=== PATIENT | male | born 1940 | race Caucasian/White ===

== ENCOUNTER 2020-09-10 11:06 | Inpatient (IN) | payer OTHER ==
[~2020-09-10] VITALS: Ht 175.3 cm; Wt 99.8 kg
[~2020-09-10 11:06] MED LIST: ALLO100T PO; BACL10TA PO; FENO145T27 PO; GLIP10TA9 PO; NIFE90TA49 PO; SIMV-8 PO; TAMS0.4C36 PO; TEMA30CA PO; TRAM50TA2 PO
[2020-09-10] MEDS ORDERED: SODIUM CHLORIDE 0.9% 500 ML IVB ONE (11:15)
[2020-09-10] MEDS ORDERED: FUROSEMIDE 40 MG/4 ML VIAL IV ONE (12:15)
[2020-09-10 12:46] LABS: Basophils # (auto) 0.1 10 ^3/uL (0-0.2); Basophils % (auto) 0.8 % (0.0-2.0); Eosinophils # (auto) 0.5 10 ^3/uL (0-0.8); Eosinophils % (auto) 5.1 % (0.0-7.0); Hematocrit 34.4 % (41.0-53.0); Hemoglobin 11.8 g/dL (13.5-17.5); Lymphocytes # (auto) 0.9 10 ^3/uL (0.4-5.4); Mean Corpuscular Hemoglobin 32.5 pg (28.0-32.0); Mean Corpuscular Hgb Conc. 34.4 g/dL (32.0-36.0); Mean Corpuscular Volume 94.4 fL (80.0-100.0); Monocytes # (auto) 0.8 10 ^3/uL (0-1.3); Monocytes % (auto) 8.2 % (0.0-12.0); Neutrophils % (auto) 75.9 % (37.0-80.0); Platelet Count (auto) 269 10^3/uL (140-450); Red Blood Cells 3.64 10^6/uL (4.5-5.90); Red Cell Distribution Width 13.6 % (11.8-14.3); White Blood Cell 9.2 10^3/uL (4.4-10.8)
[2020-09-10 16:00] LABS: Albumin 3.1 g/dL (3.4-5.0); Blood Alcohol < 3.0 mg/dL (0-5); Blood Urea Nitrogen 54 mg/dL (7-18); Calcium 8.6 mg/dL (8.5-10.1); Carbon Dioxide 20 mmol/L (21-32); Glucose 252 mg/dL (74-106)
[2020-09-10 16:11] LABS: Alanine Aminotransferase 25 U/L (16-61); Alkaline Phosphatase 112 U/L (45-117); Anion Gap 7 (5-15); Aspartate Aminotransferase 18 U/L (15-37); Bilirubin, Total 0.2 mg/dL (0.2-1.0); Chloride 107 mmol/L (98-107); GFR African American 23 mL/min; GFR Non-African American 19 mL/min; Potassium 5.2 mmol/L (3.5-5.1); Sodium 134 mmol/L (136-145); Total Protein 7.2 g/dL (6.4-8.2)
[2020-09-10 16:43] LABS: CRP High Sensitivity 4.96 mg/dL (< 0.3)
[2020-09-10] MEDS ORDERED: NITROGLYCERIN 0.4 MG SL TAB SL PRN (18:30)
[2020-09-10] MEDS ORDERED: SODIUM ZIRCONIUM CYCL 10 GM PAK PO ONE (18:30)
[2020-09-10] MEDS ORDERED: HYDROcodone-ACET 5/325MG TAB PO PRN (18:30)
[2020-09-10] MEDS ORDERED: MORPHINE SULF INJ 2 MG/ML SYRINGE 1ML IV PRN ×2 (18:30)
[2020-09-10] MEDS ORDERED: ACETAMINOPHEN 500 MG TAB PO PRN (18:30)
[2020-09-11] MEDS: AZITHROMYCIN 500MG/ 250ML 250 ML IV SCH ×2 (01:05→11:11)
[2020-09-11] MEDS: ASCORBIC ACID 1,000 MG TAB PO SCH ×2 (01:05→11:36)
[2020-09-11] MEDS: ZINC SULFATE 220mg CAP or TAB PO SCH ×2 (01:05→11:37)
[2020-09-11] MEDS: ENOXAPARIN SOD 30 MG/0.3 ML SYRINGE SC SCH ×2 (01:05→18:00)
[2020-09-11] MEDS: cefTRIAXone 1GM/50ML D5W 50 ML IV SCH ×2 (01:05→09:23)
[2020-09-11] MEDS: CHOLECALCIFEROL (VITD3) 2,000 UNIT CAP PO SCH ×2 (01:05→11:11)
[2020-09-11] MEDS ORDERED: FAMOTIDINE 20 MG TAB PO SCH (10:00)
[2020-09-11 10:52] LABS: Basophils # (auto) 0.1 10 ^3/uL (0-0.2); Basophils % (auto) 0.6 % (0.0-2.0); Eosinophils # (auto) 0.4 10 ^3/uL (0-0.8); Eosinophils % (auto) 3.3 % (0.0-7.0); Hematocrit 36.7 % (41.0-53.0); Hemoglobin 12.4 g/dL (13.5-17.5); Lymphocytes # (auto) 0.7 10 ^3/uL (0.4-5.4); Lymphocytes % (auto) 6.2 % (10.0-50.0); Mean Corpuscular Hgb Conc. 33.8 g/dL (32.0-36.0); Mean Corpuscular Volume 94.7 fL (80.0-100.0); Monocytes # (auto) 0.8 10 ^3/uL (0-1.3); Monocytes % (auto) 7.5 % (0.0-12.0); Neutrophils # (auto) 9.2 10 ^3/uL (1.6-8.6); Neutrophils % (auto) 82.4 % (37.0-80.0); Nucleated Red Blood Cells % 0.3 %; Platelet Count (auto) 276 10^3/uL (140-450); Red Blood Cells 3.88 10^6/uL (4.5-5.90); Red Cell Distribution Width 13.8 % (11.8-14.3); White Blood Cell 11.2 10^3/uL (4.4-10.8)
[2020-09-11 12:05] LABS: Potassium 4.5 mmol/L (3.5-5.1)
[2020-09-11 12:32] LABS: BUN/Creatinine Ratio 16.6; Calcium 8.8 mg/dL (8.5-10.1)
[2020-09-11 16:29] VITALS: BP 151/86
== END 2020-09-11 18:00 | disposition home health service (06) | DRG 917 ==
LOC: ER 11:06 → EDBD 11:06 → OVERFLOW 18:26
PROVIDERS: ADMIT Nurse Practitioner Acute Care; ATTEND Internal Medicine Geriatric Medicine
DX: T42.8X1A Poisoning by antiparkinsonism drugs and other central muscle-tone depressants, accidental (unintentional), initial encounter (principal); G93.41 Metabolic encephalopathy; I50.21 Acute systolic (congestive) heart failure; N18.4 Chronic kidney disease, stage 4 (severe); E87.1 Hypo-osmolality and hyponatremia; I13.0 Hypertensive heart and chronic kidney disease with heart failure and stage 1 through stage 4 chronic kidney disease, or unspecified chronic kidney disease; T40.421A Poisoning by tramadol, accidental (unintentional), initial encounter; F10.10 Alcohol abuse, uncomplicated; E88.09 Other disorders of plasma-protein metabolism, not elsewhere classified; E87.5 Hyperkalemia; D63.1 Anemia in chronic kidney disease; E11.22 Type 2 diabetes mellitus with diabetic chronic kidney disease; E66.9 Obesity, unspecified; E78.5 Hyperlipidemia, unspecified; N40.0 Benign prostatic hyperplasia without lower urinary tract symptoms; Z20.822 Contact with and (suspected) exposure to COVID-19; Z79.899 Other long term (current) drug therapy; Z79.84 Long term (current) use of oral hypoglycemic drugs; Y92.89 Other specified places as the place of occurrence of the external cause
CPT/HCPCS: 36415; 70450; 71045; 76775; 80048; 80053; 80320; 82306; 82607; 82728; 83036; 83605; 83735; 84425; 84443; 84484; 85025; 86141; 87040; 87426; 93005; 93306; G0378; J0696

== ENCOUNTER 2020-10-24 17:05 | Inpatient (IN) | payer OTHER ==
[~2020-10-24] VITALS: Ht 172.7 cm; Wt 80.9 kg
[2020-10-24 18:48] LABS: Basophils # (auto) 0.1 10 ^3/uL (0-0.2); Basophils % (auto) 0.7 % (0.0-2.0); Eosinophils # (auto) 0.3 10 ^3/uL (0-0.8); Eosinophils % (auto) 2.6 % (0.0-7.0); Hemoglobin 13.6 g/dL (13.5-17.5); Lymphocytes # (auto) 1.5 10 ^3/uL (0.4-5.4); Lymphocytes % (auto) 14.7 % (10.0-50.0); Mean Corpuscular Hemoglobin 32.3 pg (28.0-32.0); Mean Corpuscular Volume 94.9 fL (80.0-100.0); Monocytes % (auto) 9.7 % (0.0-12.0); Neutrophils # (auto) 7.5 10 ^3/uL (1.6-8.6); Neutrophils % (auto) 72.3 % (37.0-80.0); Platelet Count (auto) 251 10^3/uL (140-450); Red Blood Cells 4.22 10^6/uL (4.5-5.90); Red Cell Distribution Width 13.6 % (11.8-14.3); White Blood Cell 10.4 10^3/uL (4.4-10.8)
[2020-10-24 19:06] LABS: Albumin 3.5 g/dL (3.4-5.0); Anion Gap 8 (5-15); Blood Alcohol < 3.0 mg/dL (0-5); Blood Urea Nitrogen 56 mg/dL (7-18); Carbon Dioxide 21 mmol/L (21-32); Chloride 110 mmol/L (98-107); Glucose 178 mg/dL (74-106); Magnesium 2.1 mg/dL (1.6-2.6); Potassium 4.3 mmol/L (3.5-5.1); Sodium 139 mmol/L (136-145)
[2020-10-24 19:17] LABS: Alanine Aminotransferase 50 U/L (16-61); Alkaline Phosphatase 142 U/L (45-117); Aspartate Aminotransferase 35 U/L (15-37); BUN/Creatinine Ratio 14.1; Bilirubin, Total 0.4 mg/dL (0.2-1.0); GFR African American 19 mL/min; GFR Non-African American 16 mL/min; Total Protein 7.8 g/dL (6.4-8.2)
[2020-10-24] MEDS ORDERED: LORazepam 2MG/ML-1ML VIAL IV PRN (21:30)
[2020-10-24] MEDS ORDERED: TEMAZEPAM 15 MG CAP PO PRN ×2 (21:30→22:00)
[2020-10-24] MEDS ORDERED: ONDANSETRON HCL 4 MG/2 ML VIAL IV PRN (21:30)
[2020-10-24] MEDS ORDERED: ACETAMINOPHEN 325 MG TAB PO PRN (21:30)
[2020-10-24] MEDS ORDERED: DEXTROSE (50%) 50ML SYRG IV PRN (21:30)
[2020-10-24] MEDS ORDERED: NITROGLYCERIN 0.4 MG SL TAB SL PRN (21:30)
[2020-10-24] MEDS ORDERED: MORPHINE SULF INJ 2 MG/ML SYRINGE 1ML IV PRN (21:30)
[2020-10-24] MEDS: ACCU-CHEK COMFORT CURVE STRIP VI SCH (22:12)
[2020-10-24] MEDS: ATORVASTATIN 20 MG TAB PO SCH (22:15)
[2020-10-24] MEDS: InsuLIN REG 1unit/0.01ml Soln (100units/ml) SC SCH (22:16)
[2020-10-25 04:01] LABS: Urine Amorphous Crystal FEW /hpf (None Seen); Urine Bacteria FEW /hpf (None Seen); Urine Blood Negative /uL (Negative); Urine Hyaline Cast FEW /lpf (0 - 2); Urine Mucus FEW (None Seen); Urine Specific Gravity 1.014 (1.001-1.035); Urine WBC 1 /hpf (0 - 3)
[2020-10-25 04:09] LABS: Alcohol, Urine < 3.0 mg/dL (0-10); Amphetamine Screen, Urine NEGATIVE (NEGATIVE); Barbiturate Scree,Urine NEGATIVE (NEGATIVE); Benzodiazephine Screen, Urine POSITIVE (NEGATIVE); Cannabinoid Screen, Urine NEGATIVE (NEGATIVE); Cocaine Screen, Urine NEGATIVE (NEGATIVE); Phencyclidine Screen, Urine NEGATIVE (NEGATIVE)
[2020-10-25 04:17] LABS: Opiate Scree,Urine NEGATIVE (NEGATIVE)
[2020-10-25] MEDS: ACCU-CHEK COMFORT CURVE STRIP VI SCH ×4 (06:52→21:20)
[2020-10-25] MEDS: InsuLIN REG 1unit/0.01ml Soln (100units/ml) SC SCH ×4 (06:53→21:20)
[2020-10-25 06:56] LABS: Basophils # (auto) 0 10 ^3/uL (0-0.2); Basophils % (auto) 0.4 % (0.0-2.0); Eosinophils # (auto) 0.2 10 ^3/uL (0-0.8); Hemoglobin 13.3 g/dL (13.5-17.5); Lymphocytes # (auto) 1.2 10 ^3/uL (0.4-5.4); Lymphocytes % (auto) 12.2 % (10.0-50.0); Mean Corpuscular Hemoglobin 33.1 pg (28.0-32.0); Mean Corpuscular Volume 94.6 fL (80.0-100.0); Monocytes # (auto) 0.9 10 ^3/uL (0-1.3); Monocytes % (auto) 9.4 % (0.0-12.0); Neutrophils # (auto) 7.2 10 ^3/uL (1.6-8.6); Platelet Count (auto) 216 10^3/uL (140-450); Red Blood Cells 4.01 10^6/uL (4.5-5.90); Red Cell Distribution Width 13.6 % (11.8-14.3); White Blood Cell 9.4 10^3/uL (4.4-10.8)
[2020-10-25 07:13] LABS: BUN/Creatinine Ratio 14.6; Calcium 8.7 mg/dL (8.5-10.1); Potassium 4.3 mmol/L (3.5-5.1)
[2020-10-25] MEDS ORDERED: HALOPERIDOL LACTATE 5 MG/ML INJ VIAL IM PRN (09:15)
[2020-10-25] MEDS ORDERED: LORazepam 2MG/ML-1ML VIAL IV PRN (09:15)
[2020-10-25] MEDS: PANTOPRAZOLE 40 MG TAB PO SCH (10:06)
[2020-10-25] MEDS ORDERED: BUPR200T7 PO (14:58)
[2020-10-25] MEDS ORDERED: SODI650T PO (14:58)
[2020-10-25] MEDS ORDERED: INSUINJ2 SC (14:59)
[2020-10-25] MEDS ORDERED: METO25TA5 PO (14:59)
[2020-10-25] MEDS ORDERED: cefTRIAXone 1GM/50ML D5W 50 ML IV ONE (20:15)
[2020-10-25] MEDS: cloNIDine HCL 0.1 MG TAB PO PRN (21:19)
[2020-10-25] MEDS: ATORVASTATIN 20 MG TAB PO SCH (21:19)
[2020-10-26] MEDS: cloNIDine HCL 0.1 MG TAB PO PRN ×3 (03:08→18:02)
[2020-10-26] MEDS ORDERED: hydrALAZINE HCL 20 MG/ML VL IV ONE (04:15)
[2020-10-26] MEDS: ACCU-CHEK COMFORT CURVE STRIP VI SCH ×4 (06:23→21:26)
[2020-10-26] MEDS: InsuLIN REG 1unit/0.01ml Soln (100units/ml) SC SCH ×4 (06:42→21:29)
[2020-10-26 06:55] LABS: BUN/Creatinine Ratio 15.2; Calcium 8.8 mg/dL (8.5-10.1); Magnesium 1.8 mg/dL (1.6-2.6); Potassium 4.3 mmol/L (3.5-5.1)
[2020-10-26] MEDS: PANTOPRAZOLE 40 MG TAB PO SCH (09:45)
[2020-10-26 13:00] VITALS: BP 157/76
[2020-10-26 17:00] VITALS: BP 167/82
[2020-10-26] MEDS: cefTRIAXone 1GM/50ML D5W 50 ML IV SCH (21:26)
[2020-10-26] MEDS: ATORVASTATIN 20 MG TAB PO SCH (21:26)
[2020-10-26 22:00] VITALS: BP 157/82
[2020-10-27] VITALS (7 sets, daily range): BP systolic 152–212; BP diastolic 70–95
[2020-10-27] MEDS: ACCU-CHEK COMFORT CURVE STRIP VI SCH ×4 (06:19→21:43)
[2020-10-27] MEDS: InsuLIN REG 1unit/0.01ml Soln (100units/ml) SC SCH ×4 (06:29→21:44)
[2020-10-27] MEDS: PANTOPRAZOLE 40 MG TAB PO SCH (09:53)
[2020-10-27] MEDS: cloNIDine HCL 0.1 MG TAB PO PRN ×2 (13:51→20:25)
[2020-10-27] MEDS: cefTRIAXone 1GM/50ML D5W 50 ML IV SCH (21:00)
[2020-10-27] MEDS: DONEPEZIL HYDROCHLORIDE 5 MG TAB PO SCH (21:42)
[2020-10-27] MEDS: ATORVASTATIN 20 MG TAB PO SCH (21:43)
[2020-10-28 00:35] VITALS: BP 178/81
[2020-10-28 02:20] VITALS: BP 164/80
[2020-10-28] MEDS: cloNIDine HCL 0.1 MG TAB PO PRN ×2 (02:29→09:24)
[2020-10-28 05:00] VITALS: BP 168/80
[2020-10-28] MEDS: ACCU-CHEK COMFORT CURVE STRIP VI SCH ×4 (06:01→21:43)
[2020-10-28] MEDS: InsuLIN REG 1unit/0.01ml Soln (100units/ml) SC SCH ×4 (06:02→21:46)
[2020-10-28] MEDS: PANTOPRAZOLE 40 MG TAB PO SCH (09:20)
[2020-10-28] MEDS: NIFEdipine ER 30 MG TAB PO SCH (12:22)
[2020-10-28 21:00] VITALS: BP 134/85
[2020-10-28] MEDS: cefTRIAXone 1GM/50ML D5W 50 ML IV SCH (21:42)
[2020-10-28] MEDS: ATORVASTATIN 20 MG TAB PO SCH (21:43)
[2020-10-28] MEDS: DONEPEZIL HYDROCHLORIDE 5 MG TAB PO SCH (21:43)
[2020-10-28] MEDS: QUEtiapine FUMARATE 25 MG TAB PO SCH (21:43)
[2020-10-29 05:00] VITALS: BP_SYST 0; BP_SYST 115; BP_DIAS 70
[2020-10-29] MEDS: ACCU-CHEK COMFORT CURVE STRIP VI SCH ×4 (06:06→21:21)
[2020-10-29] MEDS: InsuLIN REG 1unit/0.01ml Soln (100units/ml) SC SCH ×4 (06:08→21:16)
[2020-10-29 09:00] VITALS: BP 143/71
[2020-10-29] MEDS: NIFEdipine ER 30 MG TAB PO SCH (09:45)
[2020-10-29] MEDS: PANTOPRAZOLE 40 MG TAB PO SCH (09:45)
[2020-10-29 13:00] VITALS: BP_SYST 123; BP_SYST 136; BP_DIAS 63; BP_DIAS 71
[2020-10-29 17:00] VITALS: BP 123/63
[2020-10-29 21:00] VITALS: BP_SYST 0; BP_SYST 124; BP_DIAS 58
[2020-10-29] MEDS: cefTRIAXone 1GM/50ML D5W 50 ML IV SCH (21:13)
[2020-10-29] MEDS: DONEPEZIL HYDROCHLORIDE 5 MG TAB PO SCH (21:13)
[2020-10-29] MEDS: QUEtiapine FUMARATE 25 MG TAB PO SCH (21:14)
[2020-10-29] MEDS: ATORVASTATIN 20 MG TAB PO SCH (21:14)
[2020-10-30 05:00] VITALS: BP_SYST 133; BP_SYST 5; BP_DIAS 67
[2020-10-30] MEDS: ACCU-CHEK COMFORT CURVE STRIP VI SCH ×2 (06:29→11:45)
[2020-10-30] MEDS: InsuLIN REG 1unit/0.01ml Soln (100units/ml) SC SCH ×2 (06:29→11:45)
[2020-10-30 06:37] LABS: Basophils # (auto) 0.1 10 ^3/uL (0-0.2); Basophils % (auto) 0.8 % (0.0-2.0); Eosinophils # (auto) 0.3 10 ^3/uL (0-0.8); Eosinophils % (auto) 3.7 % (0.0-7.0); Hematocrit 37.6 % (41.0-53.0); Hemoglobin 12.8 g/dL (13.5-17.5); Lymphocytes # (auto) 1.6 10 ^3/uL (0.4-5.4); Lymphocytes % (auto) 19.2 % (10.0-50.0); Mean Corpuscular Hemoglobin 32.6 pg (28.0-32.0); Mean Corpuscular Volume 95.8 fL (80.0-100.0); Monocytes # (auto) 0.8 10 ^3/uL (0-1.3); Monocytes % (auto) 9.4 % (0.0-12.0); Neutrophils # (auto) 5.4 10 ^3/uL (1.6-8.6); Neutrophils % (auto) 66.9 % (37.0-80.0); Nucleated Red Blood Cells % 0.1 %; Platelet Count (auto) 202 10^3/uL (140-450); Red Blood Cells 3.93 10^6/uL (4.5-5.90); Red Cell Distribution Width 13.4 % (11.8-14.3); White Blood Cell 8.1 10^3/uL (4.4-10.8)
[2020-10-30 07:00] LABS: BUN/Creatinine Ratio 13.5; Calcium 8.6 mg/dL (8.5-10.1); Potassium 4.2 mmol/L (3.5-5.1)
[2020-10-30 09:00] VITALS: BP 129/66
[2020-10-30] MEDS: NIFEdipine ER 30 MG TAB PO SCH (10:11)
[2020-10-30] MEDS: PANTOPRAZOLE 40 MG TAB PO SCH (10:11)
[2020-10-30 13:40] VITALS: BP 140/62
[2020-10-30 15:11] VITALS: BP 129/66
== END 2020-10-30 16:45 | DRG 71 ==
LOC: EDUNIT# 17:05 → ER 17:05 → EDBD 17:05 → TELE 17:06 → TELE-CENTR 10-26 10:35
PROVIDERS: ADMIT Nurse Practitioner; ATTEND Internal Medicine Geriatric Medicine
DX: G93.41 Metabolic encephalopathy (principal); N39.0 Urinary tract infection, site not specified; F23 Brief psychotic disorder; N17.9 Acute kidney failure, unspecified; N18.4 Chronic kidney disease, stage 4 (severe); R62.7 Adult failure to thrive; E86.0 Dehydration; E78.5 Hyperlipidemia, unspecified; N40.0 Benign prostatic hyperplasia without lower urinary tract symptoms; Z20.822 Contact with and (suspected) exposure to COVID-19; E11.22 Type 2 diabetes mellitus with diabetic chronic kidney disease; F02.80 Dementia in other diseases classified elsewhere, unspecified severity, without behavioral disturbance, psychotic disturbance, mood disturbance, and anxiety; F17.200 Nicotine dependence, unspecified, uncomplicated; G30.9 Alzheimer's disease, unspecified; I12.9 Hypertensive chronic kidney disease with stage 1 through stage 4 chronic kidney disease, or unspecified chronic kidney disease; Z79.899 Other long term (current) drug therapy; Z82.49 Family history of ischemic heart disease and other diseases of the circulatory system; Z83.3 Family history of diabetes mellitus
CPT/HCPCS: 36415; 70450; 70551; 71045; 80048; 80053; 80307; 80320; 81001; 82962; 83605; 83735; 83880; 84484; 85025; 87040; 87086; 87426; 93005; 96365; 96372; 96375; 97163; G0378; J0696; J1815

== ENCOUNTER 2022-12-02 08:11 | Inpatient (IN) | payer OTHER ==
[~2022-12-02] VITALS: Ht 172.7 cm; Wt 81.0 kg
[~2022-12-02 08:11] MED LIST changes: -ALLO100T PO; -BACL10TA PO; +BUPR200T7 PO; -FENO145T27 PO; -GLIP10TA9 PO; +INSUINJ2 SC; +METO25TA5 PO; +SODI650T PO; -TRAM50TA2 PO
[2022-12-02 08:14] VITALS: BP 187/99
[2022-12-02] MEDS ORDERED: FUROSEMIDE 40 MG/4 ML VIAL IV ONE ×2 (08:30→14:15)
[2022-12-02 08:55] LABS: Basophils # (auto) 0.1 10 ^3/uL (0-0.2); Basophils % (auto) 0.7 % (0.0-2.0); Eosinophils # (auto) 0.2 10 ^3/uL (0-0.8); Eosinophils % (auto) 1.2 % (0.0-7.0); Hematocrit 34.2 % (41.0-53.0); Hemoglobin 11.6 g/dL (13.5-17.5); Lymphocytes # (auto) 0.5 10 ^3/uL (0.4-5.4); Lymphocytes % (auto) 3.3 % (10.0-50.0); Mean Corpuscular Hgb Conc. 33.9 g/dL (32.0-36.0); Mean Corpuscular Volume 100.3 fL (80.0-100.0); Monocytes % (auto) 7.3 % (0.0-12.0); Neutrophils # (auto) 12.1 10 ^3/uL (1.6-8.6); Neutrophils % (auto) 87.5 % (37.0-80.0); Nucleated Red Blood Cells % 0.1 %; Red Blood Cells 3.41 10^6/uL (4.5-5.90); Red Cell Distribution Width 13.4 % (11.8-14.3); White Blood Cell 13.8 10^3/uL (4.4-10.8)
[2022-12-02 09:27] LABS: Albumin 3.1 g/dL (3.4-5.0); Calcium 8.3 mg/dL (8.5-10.1); Potassium 5.1 mmol/L (3.5-5.1)
[2022-12-02 09:30] LABS: BUN/Creatinine Ratio 9.2 (10.0-20.0); Bilirubin, Total 0.3 mg/dL (0.2-1.0); Total Protein 6.7 g/dL (6.4-8.2)
[2022-12-02] MEDS ORDERED: hydrALAZINE HCL 20 MG/ML VL IV PRN (09:45)
[2022-12-02 10:56] VITALS: BP 165/80
[2022-12-02 11:58] LABS: Cholesterol 194 mg/dL (< 200)
[2022-12-02 12:01] LABS: HDL Cholesterol 47 mg/dL (40-59); LDL Cholesterol 121 mg/dL (< 100); Triglycerides 186 mg/dL (< 150)
[2022-12-02 12:09] LABS: Urine Bacteria NONE SEEN /hpf (None Seen); Urine Blood 1+ /uL (Negative); Urine Specific Gravity 1.011 (1.001-1.035); Urine WBC <1 /hpf (0 - 3)
[2022-12-02] MEDS ORDERED: MORPHINE SULFATE INJ 2 MG/ml SYRG IV PRN (12:45)
[2022-12-02] MEDS ORDERED: NITROGLYCERIN 0.4 MG SL TAB SL PRN ×2 (12:45→17:45)
[2022-12-02] MEDS ORDERED: cefTRIAXone 1GM/50ML D5W 50 ML IV ONE (13:00)
[2022-12-02] MEDS ORDERED: AZITHROMYCIN 500MG/ 250ML 250 ML IV ONE (13:00)
[2022-12-02] MEDS ORDERED: SODIUM CHLORIDE 0.9% 1,000 ML IV ONE (13:00)
[2022-12-02] MEDS ORDERED: DEXTROSE (50%) 50ML SYRG IV PRN (13:00)
[2022-12-02] MEDS ORDERED: PANTOPRAZOLE 40 MG/10 ML VIAL INJ IV ONE (13:15)
[2022-12-02] MEDS ORDERED: IPRATROPIUM BROM 0.5 MG/2.5ML INH SOL NEB PRN (13:15)
[2022-12-02] MEDS ORDERED: ALBUTEROL SULF 2.5 MG/0.5ML(0.5%) NEB SOLN NEB PRN (13:15)
[2022-12-02 13:43] LABS: Alcohol, Urine < 3.0 mg/dL (0-10); Amphetamine Screen, Urine NEGATIVE (NEGATIVE); Barbiturate Scree,Urine NEGATIVE (NEGATIVE); Benzodiazephine Screen, Urine NEGATIVE (NEGATIVE); Cannabinoid Screen, Urine NEGATIVE (NEGATIVE); Cocaine Screen, Urine NEGATIVE (NEGATIVE); Opiate Scree,Urine NEGATIVE (NEGATIVE); Phencyclidine Screen, Urine NEGATIVE (NEGATIVE)
[2022-12-02] MEDS ORDERED: HEPARIN SODIUM (PORCINE) 5000 UNITS/ML 1ML VIAL SC SCH (14:00)
[2022-12-02 14:06] VITALS: BP 179/88
[2022-12-02] MEDS: InsuLIN REG 1unit/0.01ml Soln (100units/ml) SC SCH ×2 (15:56→23:26)
[2022-12-02] MEDS: ACCU-CHEK COMFORT CURVE STRIP VI SCH ×2 (15:57→22:19)
[2022-12-02 16:00] VITALS: BP 169/78
[2022-12-02] MEDS: TAMSULOSIN HYDROCHLORIDE 0.4 MG CAP PO SCH (16:03)
[2022-12-02 16:31] LABS: INR 1.03 (0.9-1.15); Partial Thromboplastin Time 27.6 sec (24.6-33.4)
[2022-12-02] MEDS ORDERED: SODIUM CHL 0.9% 1000 ML BAG XX ONE (17:15)
[2022-12-02 17:20] LABS: Basophils # (auto) 0.1 10 ^3/uL (0-0.2); Basophils % (auto) 0.4 % (0.0-2.0); Eosinophils # (auto) 0 10 ^3/uL (0-0.8); Lymphocytes # (auto) 0.8 10 ^3/uL (0.4-5.4); Lymphocytes % (auto) 4.9 % (10.0-50.0); Neutrophils # (auto) 12.4 10 ^3/uL (1.6-8.6); White Blood Cell 15.3 10^3/uL (4.4-10.8)
[2022-12-02 17:21] LABS: Hematocrit 38.5 % (41.0-53.0); Hemoglobin 12.1 g/dL (13.5-17.5); Mean Corpuscular Hemoglobin 33.3 pg (28.0-32.0); Mean Corpuscular Hgb Conc. 31.5 g/dL (32.0-36.0); Mean Corpuscular Volume 105.9 fL (80.0-100.0); Monocytes # (auto) 2.1 10 ^3/uL (0-1.3); Monocytes % (auto) 13.7 % (0.0-12.0); Nucleated Red Blood Cells % 0.2 %; Red Blood Cells 3.64 10^6/uL (4.5-5.90); Red Cell Distribution Width 14.4 % (11.8-14.3)
[2022-12-02] MEDS ORDERED: TICAGRELOR 90 MG TAB PO ONE (17:30)
[2022-12-02] MEDS ORDERED: ASPirin 81 mg TAB PO ONE (17:30)
[2022-12-02] MEDS ORDERED: HEPARIN DRIP/D5W 100UNITS/ML 250 ML IV SCH (17:30)
[2022-12-02] MEDS: FUROSEMIDE 100 MG/10ML VIAL IV SCH ×2 (17:32→23:17)
[2022-12-02] MEDS ORDERED: MORPHINE SULFATE 4 MG/ML SYR/VIAL IV PRN (17:45)
[2022-12-02 19:15] LABS: % Iron Saturation 10.2 % (20-55)
[2022-12-02] MEDS: ALBUTEROL SULF 2.5 MG/0.5ML(0.5%) NEB SOLN NEB SCH (19:20)
[2022-12-02] MEDS: IPRATROPIUM BROM 0.5 MG/2.5ML INH SOL NEB PRN ×2 (19:20→22:50)
[2022-12-02 20:20] VITALS: BP 159/90
[2022-12-02] MEDS: ROCURONIUM 10MG/ML 10ML VIAL IV ONE ×2 (20:42→21:42)
[2022-12-02] MEDS: ETOMIDATE (2MG/ML) 20ML VIAL IV ONE ×2 (20:42→21:42)
[2022-12-02] MEDS: PROPOFOL 100 ML IV SCH ×2 (20:45→21:45)
[2022-12-02] MEDS ORDERED: LORazepam 2MG/ML-1ML VIAL IV ONE (21:15)
[2022-12-02] MEDS ORDERED: ROCURONIUM 10MG/ML 10ML VIAL IV ONE (21:39)
[2022-12-02] MEDS ORDERED: PROPOFOL 100 ML IV ONE (21:39)
[2022-12-02] MEDS ORDERED: ETOMIDATE (2MG/ML) 20ML VIAL IV ONE (21:39)
[2022-12-02 21:40] VITALS: BP 174/94
[2022-12-02] MEDS: TEMAZEPAM 15 MG CAP PO SCH (22:00)
[2022-12-02] MEDS ORDERED: NIFEdipine ER 30 MG TAB PO SCH (22:00)
[2022-12-02] MEDS: SODIUM BICARBONATE 650 MG TAB PO SCH (22:00)
[2022-12-02] MEDS: ATORVASTATIN 20 MG TAB PO SCH (22:00)
[2022-12-02] MEDS ORDERED: METOPROLOL TARTRATE 25 MG TAB PO SCH (22:00)
[2022-12-02] MEDS ORDERED: MIDAZOLAM HCL 5 MG/ML-1ML VIAL IV ONE (22:45)
[2022-12-03] VITALS (12 sets, daily range): BP systolic 94–142; BP diastolic 45–71
[2022-12-03] MEDS: ALBUTEROL SULF 2.5 MG/0.5ML(0.5%) NEB SOLN NEB SCH ×4 (00:02→18:23)
[2022-12-03] MEDS: IPRATROPIUM BROM 0.5 MG/2.5ML INH SOL NEB PRN (00:02)
[2022-12-03] MEDS ORDERED: SODIUM BICARBONATE 8.4 % INJ 50ML VIAL IV ONE (00:15)
[2022-12-03 00:24] LABS: INR 1.09 (0.9-1.15); Partial Thromboplastin Time 43.2 sec (24.6-33.4)
[2022-12-03] MEDS: fentaNYL Drip 2500mCg/250mlNS 250 ML IV SCH (01:15)
[2022-12-03] MEDS: SODIUM BICARBONATE 650 MG TAB PO SCH ×3 (06:00→22:00)
[2022-12-03] MEDS: ACCU-CHEK COMFORT CURVE STRIP VI SCH ×4 (06:30→22:05)
[2022-12-03 06:33] LABS: Eosinophils # (auto) 0 10 ^3/uL (0-0.8); Lymphocytes # (auto) 0.7 10 ^3/uL (0.4-5.4); Lymphocytes % (auto) 5.9 % (10.0-50.0); Mean Corpuscular Hgb Conc. 33.4 g/dL (32.0-36.0); Monocytes # (auto) 1.4 10 ^3/uL (0-1.3); Monocytes % (auto) 11.4 % (0.0-12.0)
[2022-12-03 06:37] LABS: Basophils # (auto) 0 10 ^3/uL (0-0.2); Basophils % (auto) 0.3 % (0.0-2.0); Hematocrit 31.8 % (41.0-53.0); Hemoglobin 10.6 g/dL (13.5-17.5); Mean Corpuscular Volume 101.7 fL (80.0-100.0); Neutrophils # (auto) 9.8 10 ^3/uL (1.6-8.6); Neutrophils % (auto) 82.4 % (37.0-80.0); Nucleated Red Blood Cells % 0.1 %; Red Blood Cells 3.12 10^6/uL (4.5-5.90); Red Cell Distribution Width 13.6 % (11.8-14.3); White Blood Cell 11.9 10^3/uL (4.4-10.8)
[2022-12-03] MEDS: FUROSEMIDE 100 MG/10ML VIAL IV SCH (06:51)
[2022-12-03] MEDS: InsuLIN REG 1unit/0.01ml Soln (100units/ml) SC SCH ×4 (06:51→22:36)
[2022-12-03 08:36] LABS: BUN/Creatinine Ratio 8.8 (10.0-20.0)
[2022-12-03 08:37] LABS: Albumin 2.4 g/dL (3.4-5.0); Bilirubin, Total 0.3 mg/dL (0.2-1.0); Calcium 8.1 mg/dL (8.5-10.1); Total Protein 6.2 g/dL (6.4-8.2)
[2022-12-03 08:39] LABS: Potassium 5.9 mmol/L (3.5-5.1)
[2022-12-03 08:42] LABS: INR 1.16 (0.9-1.15)
[2022-12-03 08:45] LABS: Partial Thromboplastin Time 107.1 sec (24.6-33.4)
[2022-12-03] MEDS ORDERED: FUROSEMIDE 100 MG/10ML VIAL IV ONE ×2 (09:15→18:00)
[2022-12-03] MEDS: cefTRIAXone 1GM/50ML D5W 50 ML IV SCH (09:15)
[2022-12-03] MEDS: ACETAMINOPHEN 650 MG RECT SUPP PR PRN (09:17)
[2022-12-03] MEDS ORDERED: FUROSEMIDE INJECTION 100 MG in SODIUM CHL 0.9% 100 ML IV SCH (09:45)
[2022-12-03] MEDS ORDERED: HEPARIN DRIP/D5W 100UNITS/ML 250 ML IV SCH ×2 (09:45→17:30)
[2022-12-03] MEDS ORDERED: FUROSEMIDE 20 MG/2 ML VIAL IV SCH (10:00)
[2022-12-03] MEDS: ASPirin 81 mg TAB PO SCH (10:00)
[2022-12-03] MEDS: PANTOPRAZOLE 40 MG/10 ML VIAL INJ IV SCH (10:31)
[2022-12-03] MEDS: AZITHROMYCIN 500MG/ 250ML 250 ML IV SCH (10:31)
[2022-12-03 10:34] LABS: Lactic Acid w/Reflex 2.8 mmol/L (0.4-2.0)
[2022-12-03] MEDS ORDERED: DOBUTamine 1000MCG/ML 250 ML IV SCH (12:00)
[2022-12-03] MEDS: NOREPINEPHRINE 8 MG/250ML KIT 250 ML IV SCH (14:25)
[2022-12-03] MEDS ORDERED: AMIODARONE 450mg/250ml AE 250 ML IV SCH (14:30)
[2022-12-03] MEDS ORDERED: AMIODARONE HCL 150 MG in D5W 5% 100 ML IV ONE ×2 (14:30→16:00)
[2022-12-03] MEDS ORDERED: EPINEPHrine HCL 1 MG/10 ML SYRG ONE (16:45)
[2022-12-03] MEDS ORDERED: ATROPINE SULFATE 0.4 MG/1 ML VIAL ONE (16:51)
[2022-12-03] MEDS ORDERED: ATROPINE SULFATE 1 MG/1 ML VIAL ONE (16:52)
[2022-12-03 16:54] LABS: INR 1.14 (0.9-1.15)
[2022-12-03 17:04] LABS: Partial Thromboplastin Time 75.9 sec (24.6-33.4)
[2022-12-03] MEDS: MIDAZOLAM DRIP 50 mg/50mL 50 ML IV SCH ×2 (17:30→19:45)
[2022-12-03] MEDS: TAMSULOSIN HYDROCHLORIDE 0.4 MG CAP PO SCH (18:00)
[2022-12-03] MEDS ORDERED: FUROSEMIDE INJECTION 0 ML ONE (18:08)
[2022-12-03] MEDS ORDERED: SODIUM CHL 0.9% IV ONE ×4 (18:15)
[2022-12-03] MEDS ORDERED: FUROSEMIDE IV ONE ×4 (18:15)
[2022-12-03] MEDS: FUROSEMIDE INJECTION 100 MG in SODIUM CHL 0.9% 100 ML IV SCH (20:14)
[2022-12-03] MEDS: AMIODARONE 450mg/250ml AE 250 ML IV SCH (20:31)
[2022-12-03] MEDS: PROPOFOL 100 ML IV SCH (21:45)
[2022-12-03] MEDS: TEMAZEPAM 15 MG CAP PO SCH (22:00)
[2022-12-03] MEDS: ATORVASTATIN 20 MG TAB PO SCH (22:00)
[2022-12-04] VITALS (59 sets, daily range): BP systolic 92–141; BP diastolic 39–62
[2022-12-04] MEDS: ALBUTEROL SULF 2.5 MG/0.5ML(0.5%) NEB SOLN NEB SCH ×4 (00:08→18:17)
[2022-12-04] MEDS: NOREPINEPHRINE 8 MG/250ML KIT 250 ML IV SCH ×3 (00:45→01:12)
[2022-12-04 01:27] LABS: INR 1.18 (0.9-1.15); Partial Thromboplastin Time 54.2 sec (24.6-33.4)
[2022-12-04] MEDS ORDERED: FUROSEMIDE INJECTION 10 ML ONE (03:02)
[2022-12-04] MEDS: MIDAZOLAM DRIP 50 mg/50mL 50 ML IV SCH ×5 (03:23→23:00)
[2022-12-04] MEDS: FUROSEMIDE INJECTION 100 MG in SODIUM CHL 0.9% 100 ML IV SCH ×4 (03:55→14:22)
[2022-12-04] MEDS: fentaNYL Drip 2500mCg/250mlNS 250 ML IV SCH ×2 (04:49→23:30)
[2022-12-04] MEDS: SODIUM BICARBONATE 650 MG TAB PO SCH ×3 (06:00→22:04)
[2022-12-04 06:34] LABS: INR 1.17 (0.9-1.15); Partial Thromboplastin Time 56.4 sec (24.6-33.4)
[2022-12-04] MEDS: ACCU-CHEK COMFORT CURVE STRIP VI SCH ×4 (07:00→22:00)
[2022-12-04] MEDS ORDERED: SODIUM CHL 0.9% 1000 ML BAG XX ONE (07:00)
[2022-12-04] MEDS: InsuLIN REG 1unit/0.01ml Soln (100units/ml) SC SCH ×4 (07:00→22:37)
[2022-12-04 09:47] LABS: Basophils # (auto) 0.1 10 ^3/uL (0-0.2); Eosinophils # (auto) 0 10 ^3/uL (0-0.8); Lymphocytes # (auto) 0.5 10 ^3/uL (0.4-5.4); Monocytes # (auto) 0.2 10 ^3/uL (0-1.3); Nucleated Red Blood Cells % 0.2 %
[2022-12-04 09:48] LABS: Basophils % (auto) 0.9 % (0.0-2.0); Eosinophils % (auto) 0.4 % (0.0-7.0); Hematocrit 23.9 % (41.0-53.0); Hemoglobin 8.3 g/dL (13.5-17.5); Lymphocytes % (auto) 6.7 % (10.0-50.0); Mean Corpuscular Hgb Conc. 34.6 g/dL (32.0-36.0); Mean Corpuscular Volume 101.1 fL (80.0-100.0); Monocytes % (auto) 3.4 % (0.0-12.0); Neutrophils # (auto) 6.3 10 ^3/uL (1.6-8.6); Neutrophils % (auto) 88.6 % (37.0-80.0); Red Blood Cells 2.36 10^6/uL (4.5-5.90); Red Cell Distribution Width 13.5 % (11.8-14.3); White Blood Cell 7.1 10^3/uL (4.4-10.8)
[2022-12-04] MEDS: ASPirin 81 mg TAB PO SCH (10:00)
[2022-12-04 10:08] LABS: Calcium 7.6 mg/dL (8.5-10.1); Potassium 4.4 mmol/L (3.5-5.1)
[2022-12-04 11:11] LABS: Albumin 1.9 g/dL (3.4-5.0); BUN/Creatinine Ratio 7.7 (10.0-20.0); Bilirubin, Total 0.4 mg/dL (0.2-1.0); Total Protein 5.3 g/dL (6.4-8.2)
[2022-12-04] MEDS: PANTOPRAZOLE 40 MG/10 ML VIAL INJ IV SCH (11:24)
[2022-12-04] MEDS: cefTRIAXone 1GM/50ML D5W 50 ML IV SCH (11:25)
[2022-12-04] MEDS: DexAMETHasone SOD PHOS 10MG/1ML VIAL INJ IV SCH (11:25)
[2022-12-04] MEDS: AZITHROMYCIN 500MG/ 250ML 250 ML IV SCH (11:25)
[2022-12-04] MEDS: AMIODARONE 450mg/250ml AE 250 ML IV SCH ×2 (11:42→23:00)
[2022-12-04] MEDS: IPRATROPIUM BROM 0.5 MG/2.5ML INH SOL NEB PRN (12:17)
[2022-12-04 12:46] LABS: INR 1.19 (0.9-1.15); Partial Thromboplastin Time 44.9 sec (24.6-33.4)
[2022-12-04] MEDS ORDERED: HEPARIN DRIP/D5W 100UNITS/ML 250 ML IV SCH (13:00)
[2022-12-04] MEDS ORDERED: ANGIOMAX 250 MG VIAL IV ONE (15:10)
[2022-12-04] MEDS ORDERED: SODIUM CHL 0.9% 0 ML ONE (15:10)
[2022-12-04] MEDS ORDERED: IODIXANOL 320MG/ML 100ML BTL IV ONE ×2 (15:12→16:16)
[2022-12-04] MEDS ORDERED: LIDOCAINE 2%HCL (LOCAL ANESTH.) INJ 20ML MDV ONE (15:12)
[2022-12-04 15:57] LABS: Lactic Acid w/Reflex 6.5 mmol/L (0.4-2.0)
[2022-12-04] MEDS ORDERED: MORPHINE SULFATE INJ 2 MG/ml SYRG IV PRN (16:00)
[2022-12-04] MEDS ORDERED: ceFAZolin 1GM/50ML 50 ML IV ONE (16:52)
[2022-12-04] MEDS: TAMSULOSIN HYDROCHLORIDE 0.4 MG CAP PO SCH (18:00)
[2022-12-04] MEDS ORDERED: metOLazone 5 MG TAB PO ONE ×2 (19:15→22:15)
[2022-12-04 21:46] LABS: INR 1.25 (0.9-1.15); Partial Thromboplastin Time 38.4 sec (24.6-33.4)
[2022-12-04] MEDS: BUMETANIDE 2.5mg/10ml (0.25 mg/ml) INJ IV SCH (22:00)
[2022-12-04] MEDS: TEMAZEPAM 15 MG CAP PO SCH (22:00)
[2022-12-04] MEDS: ATORVASTATIN 20 MG TAB PO SCH (22:05)
[2022-12-05] VITALS (111 sets, daily range): BP systolic 87–180; BP diastolic 34–71
[2022-12-05] MEDS ORDERED: ALBUMIN 25% 100 ML IV PRN (05:00)
[2022-12-05] MEDS ORDERED: BUMETANIDE 1mg/4ml VIAL (0.25mg/ml) ONE (05:24)
[2022-12-05] MEDS: SODIUM BICARBONATE 650 MG TAB PO SCH ×3 (06:00→21:13)
[2022-12-05] MEDS: BUMETANIDE 2.5mg/10ml (0.25 mg/ml) INJ IV SCH ×2 (06:05→17:24)
[2022-12-05] MEDS: ACCU-CHEK COMFORT CURVE STRIP VI SCH ×4 (06:06→21:13)
[2022-12-05] MEDS: InsuLIN REG 1unit/0.01ml Soln (100units/ml) SC SCH ×4 (06:06→21:52)
[2022-12-05] MEDS: ALBUTEROL SULF 2.5 MG/0.5ML(0.5%) NEB SOLN NEB SCH ×4 (06:20→18:46)
[2022-12-05 06:23] LABS: INR 1.34 (0.9-1.15)
[2022-12-05] MEDS ORDERED: MIDODRINE HCL 10 MG TAB ONE (06:44)
[2022-12-05] MEDS ORDERED: MIDODRINE HCL 10 MG TAB PO ONE (06:45)
[2022-12-05 06:54] LABS: Partial Thromboplastin Time 79.8 sec (24.6-33.4)
[2022-12-05] MEDS ORDERED: SODIUM CHL 0.9% 1000 ML BAG XX ONE (07:00)
[2022-12-05 07:09] LABS: Potassium 4.3 mmol/L (3.5-5.1)
[2022-12-05 07:10] LABS: Albumin 1.8 g/dL (3.4-5.0); BUN/Creatinine Ratio 10.7 (10.0-20.0); Bilirubin, Total 0.3 mg/dL (0.2-1.0); Calcium 7.5 mg/dL (8.5-10.1); Total Protein 4.1 g/dL (6.4-8.2)
[2022-12-05 07:32] LABS: Hematocrit 19.2 % (41.0-53.0); Mean Corpuscular Volume 100.6 fL (80.0-100.0); White Blood Cell 9.3 10^3/uL (4.4-10.8)
[2022-12-05 07:34] LABS: Mean Corpuscular Hgb Conc. 35.8 g/dL (32.0-36.0); Red Blood Cells 1.91 10^6/uL (4.5-5.90); Red Cell Distribution Width 13.3 % (11.8-14.3)
[2022-12-05 07:37] LABS: Hemoglobin 6.9 g/dL (13.5-17.5)
[2022-12-05 07:38] LABS: Basophils % (manual) 0 (0.0-2.0); Blast Cells 0; Eosinophils % (manual) 0 (0-7); Metamyelocytes % 0; Monocytes % (manual) 0 (0-12); Myelocytes % 0; Promyelocytes % 0; Reactive Lymphocytes 0
[2022-12-05] MEDS: PROPOFOL 100 ML IV SCH ×2 (09:00→20:56)
[2022-12-05 09:07] LABS: Basophils # (auto) 0 10 ^3/uL (0-0.2); Basophils % (auto) 0.4 % (0.0-2.0); Eosinophils # (auto) 0 10 ^3/uL (0-0.8); Eosinophils % (auto) 0.1 % (0.0-7.0); Hematocrit 19.8 % (41.0-53.0); Lymphocytes # (auto) 0.2 10 ^3/uL (0.4-5.4); Lymphocytes % (auto) 2.1 % (10.0-50.0); Mean Corpuscular Hemoglobin 34.1 pg (28.0-32.0); Mean Corpuscular Hgb Conc. 34.3 g/dL (32.0-36.0); Mean Corpuscular Volume 99.4 fL (80.0-100.0); Monocytes # (auto) 0.3 10 ^3/uL (0-1.3); Monocytes % (auto) 2.9 % (0.0-12.0); Neutrophils # (auto) 10.9 10 ^3/uL (1.6-8.6); Neutrophils % (auto) 94.5 % (37.0-80.0); Nucleated Red Blood Cells % 0.1 %; Red Cell Distribution Width 13.4 % (11.8-14.3); White Blood Cell 11.5 10^3/uL (4.4-10.8)
[2022-12-05 09:12] LABS: Hemoglobin 6.8 g/dL (13.5-17.5)
[2022-12-05 09:44] LABS: Band Neutrophils % (manual) 24; Lymphocytes % (manual) 1 (10.0-50.0)
[2022-12-05 09:55] LABS: Hepatitis B Surface Antibody Negative (Negative)
[2022-12-05] MEDS: METOPROLOL TARTRATE 25 MG TAB PO SCH ×2 (10:00→20:56)
[2022-12-05] MEDS: CALCITRIOL 0.25 MCG CAP PO SCH (10:00)
[2022-12-05] MEDS: PANTOPRAZOLE 40 MG/10 ML VIAL INJ IV SCH (10:23)
[2022-12-05] MEDS: cefTRIAXone 1GM/50ML D5W 50 ML IV SCH (10:23)
[2022-12-05] MEDS: AZITHROMYCIN 500MG/ 250ML 250 ML IV SCH (10:23)
[2022-12-05] MEDS: ASPirin 81 mg TAB PO SCH (10:24)
[2022-12-05] MEDS: DexAMETHasone SOD PHOS 10MG/1ML VIAL INJ IV SCH (10:24)
[2022-12-05] MEDS ORDERED: AMIODARONE HCL 200 MG TAB PO ONE (10:45)
[2022-12-05] MEDS: IPRATROPIUM BROM 0.5 MG/2.5ML INH SOL NEB PRN ×2 (11:27→18:46)
[2022-12-05 12:55] LABS: Hepatitis C Antibody Negative (Negative)
[2022-12-05 12:56] LABS: Hepatitis A Ab IgM Negative; Hepatitis B Core IgM Negative
[2022-12-05] MEDS: NOREPINEPHRINE 8 MG/250ML KIT 250 ML IV SCH (13:15)
[2022-12-05] MEDS: TAMSULOSIN HYDROCHLORIDE 0.4 MG CAP PO SCH (17:22)
[2022-12-05] MEDS: TEMAZEPAM 15 MG CAP PO SCH (20:57)
[2022-12-05] MEDS ORDERED: EPOETIN ALFA-EPBX 4,000 UNIT/ML VIAL SC ONE (21:00)
[2022-12-05] MEDS: AMIODARONE HCL 200 MG TAB PO SCH (21:13)
[2022-12-05] MEDS: MIDAZOLAM DRIP 50 mg/50mL 50 ML IV SCH (23:29)
[2022-12-06] VITALS (76 sets, daily range): BP systolic 98–174; BP diastolic 37–63
[2022-12-06] MEDS: IPRATROPIUM BROM 0.5 MG/2.5ML INH SOL NEB PRN ×2 (00:21→06:49)
[2022-12-06] MEDS: ALBUTEROL SULF 2.5 MG/0.5ML(0.5%) NEB SOLN NEB SCH ×4 (00:21→18:26)
[2022-12-06] MEDS: fentaNYL Drip 2500mCg/250mlNS 250 ML IV SCH ×2 (00:45→20:35)
[2022-12-06] MEDS ORDERED: MIDODRINE HCL 10 MG TAB PO ONE (05:00)
[2022-12-06] MEDS: BUMETANIDE 2.5mg/10ml (0.25 mg/ml) INJ IV SCH ×2 (06:00→18:01)
[2022-12-06] MEDS: ACCU-CHEK COMFORT CURVE STRIP VI SCH ×4 (06:21→22:39)
[2022-12-06] MEDS: SODIUM BICARBONATE 650 MG TAB PO SCH ×3 (06:22→22:39)
[2022-12-06] MEDS: InsuLIN REG 1unit/0.01ml Soln (100units/ml) SC SCH ×4 (06:23→22:43)
[2022-12-06 06:41] LABS: Basophils # (auto) 0 10 ^3/uL (0-0.2); Eosinophils # (auto) 0 10 ^3/uL (0-0.8); Lymphocytes # (auto) 0.2 10 ^3/uL (0.4-5.4); Monocytes # (auto) 0.5 10 ^3/uL (0-1.3)
[2022-12-06 06:42] LABS: Basophils % (auto) 0.1 % (0.0-2.0); Hematocrit 21.8 % (41.0-53.0); Hemoglobin 7.6 g/dL (13.5-17.5); Lymphocytes % (auto) 1.8 % (10.0-50.0); Mean Corpuscular Hemoglobin 33.5 pg (28.0-32.0); Mean Corpuscular Hgb Conc. 34.9 g/dL (32.0-36.0); Mean Corpuscular Volume 95.8 fL (80.0-100.0); Monocytes % (auto) 3.9 % (0.0-12.0); Neutrophils # (auto) 11.1 10 ^3/uL (1.6-8.6); Neutrophils % (auto) 94.2 % (37.0-80.0); Nucleated Red Blood Cells % 0.3 %; Red Blood Cells 2.28 10^6/uL (4.5-5.90); Red Cell Distribution Width 18.8 % (11.8-14.3); White Blood Cell 11.8 10^3/uL (4.4-10.8)
[2022-12-06] MEDS ORDERED: SODIUM CHL 0.9% 1000 ML BAG XX ONE (07:00)
[2022-12-06 07:02] LABS: Albumin 2.1 g/dL (3.4-5.0); Calcium 7.6 mg/dL (8.5-10.1); Potassium 4.2 mmol/L (3.5-5.1)
[2022-12-06 07:04] LABS: BUN/Creatinine Ratio 9.9 (10.0-20.0)
[2022-12-06 07:12] LABS: Bilirubin, Total 0.5 mg/dL (0.2-1.0); Total Protein 5.2 g/dL (6.4-8.2)
[2022-12-06] MEDS: PANTOPRAZOLE 40 MG/10 ML VIAL INJ IV SCH (09:53)
[2022-12-06] MEDS: DexAMETHasone SOD PHOS 10MG/1ML VIAL INJ IV SCH (09:53)
[2022-12-06] MEDS: AZITHROMYCIN 500MG/ 250ML 250 ML IV SCH (09:54)
[2022-12-06] MEDS: cefTRIAXone 1GM/50ML D5W 50 ML IV SCH (09:54)
[2022-12-06] MEDS: ASPirin 81 mg TAB PO SCH (09:54)
[2022-12-06] MEDS: AMIODARONE HCL 200 MG TAB PO SCH ×2 (09:54→22:39)
[2022-12-06] MEDS: CALCITRIOL 0.25 MCG CAP PO SCH (09:55)
[2022-12-06] MEDS: METOPROLOL TARTRATE 25 MG TAB PO SCH ×2 (09:55→22:39)
[2022-12-06] MEDS: NOREPINEPHRINE 8 MG/250ML KIT 250 ML IV SCH (13:15)
[2022-12-06] MEDS: TAMSULOSIN HYDROCHLORIDE 0.4 MG CAP PO SCH (18:00)
[2022-12-06] MEDS: PROPOFOL 100 ML IV SCH (20:34)
[2022-12-06] MEDS: TEMAZEPAM 15 MG CAP PO SCH (20:34)
[2022-12-06] MEDS ORDERED: EPOETIN ALFA-EPBX 4,000 UNIT/ML VIAL SC ONE (21:00)
[2022-12-07] VITALS (89 sets, daily range): BP systolic 83–183; BP diastolic 34–65
[2022-12-07 05:20] LABS: Basophils # (auto) 0 10 ^3/uL (0-0.2); Basophils % (auto) 0.1 % (0.0-2.0); Eosinophils # (auto) 0 10 ^3/uL (0-0.8); Hemoglobin 7.9 g/dL (13.5-17.5)
[2022-12-07 05:22] LABS: Hematocrit 22.8 % (41.0-53.0); Lymphocytes # (auto) 0.2 10 ^3/uL (0.4-5.4); Lymphocytes % (auto) 2.4 % (10.0-50.0); Mean Corpuscular Hemoglobin 32.9 pg (28.0-32.0); Mean Corpuscular Hgb Conc. 34.7 g/dL (32.0-36.0); Mean Corpuscular Volume 94.8 fL (80.0-100.0); Monocytes # (auto) 0.5 10 ^3/uL (0-1.3); Monocytes % (auto) 5.3 % (0.0-12.0); Neutrophils # (auto) 8.9 10 ^3/uL (1.6-8.6); Neutrophils % (auto) 92.2 % (37.0-80.0); Nucleated Red Blood Cells % 0.6 %; Red Blood Cells 2.41 10^6/uL (4.5-5.90); Red Cell Distribution Width 18.1 % (11.8-14.3); White Blood Cell 9.6 10^3/uL (4.4-10.8)
[2022-12-07 05:37] LABS: Albumin 2.1 g/dL (3.4-5.0); Calcium 7.5 mg/dL (8.5-10.1); Potassium 4.2 mmol/L (3.5-5.1)
[2022-12-07 05:46] LABS: BUN/Creatinine Ratio 12.4 (10.0-20.0); Bilirubin, Total 0.5 mg/dL (0.2-1.0)
[2022-12-07] MEDS: BUMETANIDE 2.5mg/10ml (0.25 mg/ml) INJ IV SCH ×2 (05:49→18:01)
[2022-12-07] MEDS: SODIUM BICARBONATE 650 MG TAB PO SCH ×3 (05:49→21:32)
[2022-12-07] MEDS: ACCU-CHEK COMFORT CURVE STRIP VI SCH ×4 (06:00→21:36)
[2022-12-07] MEDS: IPRATROPIUM BROM 0.5 MG/2.5ML INH SOL NEB PRN ×2 (06:50→18:17)
[2022-12-07] MEDS ORDERED: SODIUM CHL 0.9% 1000 ML BAG XX ONE ×2 (07:00)
[2022-12-07] MEDS: ALBUTEROL SULF 2.5 MG/0.5ML(0.5%) NEB SOLN NEB SCH ×3 (07:38→18:17)
[2022-12-07] MEDS: InsuLIN REG 1unit/0.01ml Soln (100units/ml) SC SCH ×4 (07:45→21:36)
[2022-12-07] MEDS: cefTRIAXone 1GM/50ML D5W 50 ML IV SCH (08:50)
[2022-12-07] MEDS: CALCITRIOL 0.25 MCG CAP PO SCH (10:00)
[2022-12-07] MEDS: AZITHROMYCIN 500MG/ 250ML 250 ML IV SCH (10:26)
[2022-12-07] MEDS: DexAMETHasone SOD PHOS 10MG/1ML VIAL INJ IV SCH (10:26)
[2022-12-07] MEDS: PANTOPRAZOLE 40 MG/10 ML VIAL INJ IV SCH (10:26)
[2022-12-07] MEDS: METOPROLOL TARTRATE 25 MG TAB PO SCH ×2 (10:27→21:32)
[2022-12-07] MEDS: AMIODARONE HCL 200 MG TAB PO SCH ×2 (10:28→21:31)
[2022-12-07] MEDS: ASPirin 81 mg TAB PO SCH (10:28)
[2022-12-07] MEDS: NOREPINEPHRINE 8 MG/250ML KIT 250 ML IV SCH (13:15)
[2022-12-07] MEDS: MIDAZOLAM DRIP 50 mg/50mL 50 ML IV SCH (17:30)
[2022-12-07] MEDS: TAMSULOSIN HYDROCHLORIDE 0.4 MG CAP PO SCH (18:00)
[2022-12-07] MEDS: TEMAZEPAM 15 MG CAP PO SCH (21:33)
[2022-12-07] MEDS: INSULIN LANTUS (GLARGINE) 1 /0.01ml (100units/ml) SC SCH (21:35)
[2022-12-08] VITALS (64 sets, daily range): BP systolic 102–183; BP diastolic 42–90
[2022-12-08] MEDS: ALBUTEROL SULF 2.5 MG/0.5ML(0.5%) NEB SOLN NEB SCH ×5 (00:16→23:48)
[2022-12-08] MEDS: InsuLIN REG 1unit/0.01ml Soln (100units/ml) SC SCH ×4 (06:04→21:54)
[2022-12-08] MEDS: SODIUM BICARBONATE 650 MG TAB PO SCH ×3 (06:04→21:38)
[2022-12-08] MEDS: BUMETANIDE 2.5mg/10ml (0.25 mg/ml) INJ IV SCH ×2 (06:05→17:33)
[2022-12-08] MEDS: ACCU-CHEK COMFORT CURVE STRIP VI SCH ×4 (06:05→21:38)
[2022-12-08 06:10] LABS: Hematocrit 24.1 % (41.0-53.0); Mean Corpuscular Hemoglobin 32.6 pg (28.0-32.0); Mean Corpuscular Hgb Conc. 33.1 g/dL (32.0-36.0); Mean Corpuscular Volume 98.4 fL (80.0-100.0); Red Blood Cells 2.45 10^6/uL (4.5-5.90); Red Cell Distribution Width 17.3 % (11.8-14.3); White Blood Cell 11.1 10^3/uL (4.4-10.8)
[2022-12-08 06:16] LABS: Basophils % (manual) 0 (0.0-2.0); Blast Cells 0; Eosinophils % (manual) 0 (0-7); Metamyelocytes % 0; Myelocytes % 0; Promyelocytes % 0; Reactive Lymphocytes 0
[2022-12-08] MEDS ORDERED: SODIUM CHL 0.9% 1000 ML BAG XX ONE (07:00)
[2022-12-08 07:11] LABS: Potassium 4.2 mmol/L (3.5-5.1)
[2022-12-08 07:19] LABS: Albumin 2.2 g/dL (3.4-5.0); BUN/Creatinine Ratio 14.3 (10.0-20.0); Bilirubin, Total 0.4 mg/dL (0.2-1.0); Calcium 8.1 mg/dL (8.5-10.1); Phosphorus 7.2 mg/dL (2.5-4.90)
[2022-12-08 08:11] LABS: Band Neutrophils % (manual) 6; Lymphocytes % (manual) 4 (10.0-50.0); Monocytes % (manual) 6 (0-12)
[2022-12-08] MEDS: CALCITRIOL 0.25 MCG CAP PO SCH (10:00)
[2022-12-08] MEDS: DexAMETHasone SOD PHOS 10MG/1ML VIAL INJ IV SCH (10:52)
[2022-12-08] MEDS: AMIODARONE HCL 200 MG TAB PO SCH ×2 (10:52→21:38)
[2022-12-08] MEDS: PANTOPRAZOLE 40 MG/10 ML VIAL INJ IV SCH (10:52)
[2022-12-08] MEDS: METOPROLOL TARTRATE 25 MG TAB PO SCH ×2 (10:53→21:38)
[2022-12-08] MEDS: cefTRIAXone 1GM/50ML D5W 50 ML IV SCH (10:53)
[2022-12-08] MEDS: fentaNYL Drip 2500mCg/250mlNS 250 ML IV SCH ×2 (11:29→23:12)
[2022-12-08] MEDS: PROPOFOL 100 ML IV SCH ×2 (11:29→21:25)
[2022-12-08] MEDS: ASPirin 81 mg TAB PO SCH (11:30)
[2022-12-08] MEDS: AZITHROMYCIN 500MG/ 250ML 250 ML IV SCH (11:44)
[2022-12-08] MEDS: NOREPINEPHRINE 8 MG/250ML KIT 250 ML IV SCH (13:15)
[2022-12-08] MEDS: MIDAZOLAM DRIP 50 mg/50mL 50 ML IV SCH (17:30)
[2022-12-08] MEDS: TAMSULOSIN HYDROCHLORIDE 0.4 MG CAP PO SCH (17:33)
[2022-12-08] MEDS: hydrALAZINE HCL 20 MG/ML VL IV PRN (17:34)
[2022-12-08] MEDS ORDERED: EPOETIN ALFA-EPBX 10,000 UNIT/1ML VIAL SC ONE (21:00)
[2022-12-08] MEDS: INSULIN LANTUS (GLARGINE) 1 /0.01ml (100units/ml) SC SCH (21:55)
[2022-12-09] VITALS (93 sets, daily range): BP systolic 86–180; BP diastolic 32–70
[2022-12-09] MEDS: hydrALAZINE HCL 20 MG/ML VL IV PRN ×2 (00:03→20:00)
[2022-12-09] MEDS: PROPOFOL 100 ML IV SCH ×2 (01:20→22:15)
[2022-12-09 05:17] LABS: Hemoglobin 8.2 g/dL (13.5-17.5); White Blood Cell 14.6 10^3/uL (4.4-10.8)
[2022-12-09 05:20] LABS: Hematocrit 24.2 % (41.0-53.0); Mean Corpuscular Hemoglobin 32.8 pg (28.0-32.0); Mean Corpuscular Hgb Conc. 33.8 g/dL (32.0-36.0); Mean Corpuscular Volume 96.8 fL (80.0-100.0); Red Cell Distribution Width 16.9 % (11.8-14.3)
[2022-12-09 05:25] LABS: Albumin 2.2 g/dL (3.4-5.0); Calcium 7.7 mg/dL (8.5-10.1); Potassium 4.2 mmol/L (3.5-5.1)
[2022-12-09 05:27] LABS: Basophils % (manual) 0 (0.0-2.0); Blast Cells 0; Eosinophils % (manual) 0 (0-7); Metamyelocytes % 0; Promyelocytes % 0; Reactive Lymphocytes 0
[2022-12-09 05:29] LABS: BUN/Creatinine Ratio 15.6 (10.0-20.0); Bilirubin, Total 0.5 mg/dL (0.2-1.0)
[2022-12-09] MEDS: ALBUTEROL SULF 2.5 MG/0.5ML(0.5%) NEB SOLN NEB SCH ×3 (06:00→18:36)
[2022-12-09] MEDS: IPRATROPIUM BROM 0.5 MG/2.5ML INH SOL NEB PRN ×2 (06:01→11:38)
[2022-12-09] MEDS: SODIUM BICARBONATE 650 MG TAB PO SCH ×3 (06:10→21:36)
[2022-12-09] MEDS: BUMETANIDE 2.5mg/10ml (0.25 mg/ml) INJ IV SCH ×2 (06:11→17:26)
[2022-12-09] MEDS: ACCU-CHEK COMFORT CURVE STRIP VI SCH ×4 (06:45→21:49)
[2022-12-09] MEDS: InsuLIN REG 1unit/0.01ml Soln (100units/ml) SC SCH ×4 (06:46→21:40)
[2022-12-09] MEDS ORDERED: SODIUM CHL 0.9% 1000 ML BAG XX ONE (07:00)
[2022-12-09] MEDS: cefTRIAXone 1GM/50ML D5W 50 ML IV SCH (09:53)
[2022-12-09 09:54] LABS: Band Neutrophils % (manual) 17; Lymphocytes % (manual) 2 (10.0-50.0); Monocytes % (manual) 4 (0-12); Myelocytes % 3
[2022-12-09] MEDS: CALCITRIOL 0.25 MCG CAP PO SCH (10:00)
[2022-12-09] MEDS: METOPROLOL TARTRATE 25 MG TAB PO SCH ×2 (10:00→21:37)
[2022-12-09] MEDS: PANTOPRAZOLE 40 MG/10 ML VIAL INJ IV SCH (11:09)
[2022-12-09] MEDS: DexAMETHasone SOD PHOS 10MG/1ML VIAL INJ IV SCH (11:09)
[2022-12-09] MEDS: AZITHROMYCIN 500MG/ 250ML 250 ML IV SCH (11:09)
[2022-12-09] MEDS: ASPirin 81 mg TAB PO SCH (11:10)
[2022-12-09] MEDS: AMIODARONE HCL 200 MG TAB PO SCH ×2 (11:10→21:36)
[2022-12-09] MEDS: NOREPINEPHRINE 8 MG/250ML KIT 250 ML IV SCH (13:08)
[2022-12-09] MEDS: MIDAZOLAM DRIP 50 mg/50mL 50 ML IV SCH (17:22)
[2022-12-09] MEDS: TAMSULOSIN HYDROCHLORIDE 0.4 MG CAP PO SCH (17:25)
[2022-12-09] MEDS ORDERED: EPOETIN ALFA-EPBX 10,000 UNIT/1ML VIAL SC ONE (21:00)
[2022-12-09] MEDS ORDERED: INSULIN LANTUS (GLARGINE) 1 /0.01ml (100units/ml) SC SCH (22:00)
[2022-12-10] VITALS (107 sets, daily range): BP systolic 92–170; BP diastolic 37–93
[2022-12-10] MEDS: ALBUTEROL SULF 2.5 MG/0.5ML(0.5%) NEB SOLN NEB SCH ×4 (00:09→18:17)
[2022-12-10] MEDS: IPRATROPIUM BROM 0.5 MG/2.5ML INH SOL NEB PRN ×3 (00:09→18:17)
[2022-12-10] MEDS: fentaNYL Drip 2500mCg/250mlNS 250 ML IV SCH (00:45)
[2022-12-10] MEDS: PROPOFOL 100 ML IV SCH ×2 (04:27→23:50)
[2022-12-10 05:20] LABS: Hemoglobin 7.5 g/dL (13.5-17.5); Mean Corpuscular Hemoglobin 32.6 pg (28.0-32.0); Mean Corpuscular Volume 97.6 fL (80.0-100.0); Red Cell Distribution Width 17.2 % (11.8-14.3)
[2022-12-10 05:22] LABS: Hematocrit 22.4 % (41.0-53.0); Mean Corpuscular Hgb Conc. 33.5 g/dL (32.0-36.0); White Blood Cell 12.2 10^3/uL (4.4-10.8)
[2022-12-10 05:29] LABS: Basophils % (manual) 0 (0.0-2.0); Blast Cells 0; Eosinophils % (manual) 0 (0-7); Metamyelocytes % 0; Monocytes % (manual) 0 (0-12); Promyelocytes % 0; Reactive Lymphocytes 0
[2022-12-10 05:31] LABS: Potassium 3.7 mmol/L (3.5-5.1)
[2022-12-10 05:38] LABS: Albumin 1.8 g/dL (3.4-5.0); BUN/Creatinine Ratio 17.7 (10.0-20.0); Bilirubin, Total 0.5 mg/dL (0.2-1.0); Calcium 7.1 mg/dL (8.5-10.1); Total Protein 4.8 g/dL (6.4-8.2)
[2022-12-10] MEDS: SODIUM BICARBONATE 650 MG TAB PO SCH ×3 (05:45→21:31)
[2022-12-10] MEDS: BUMETANIDE 2.5mg/10ml (0.25 mg/ml) INJ IV SCH ×2 (05:45→19:01)
[2022-12-10] MEDS: InsuLIN REG 1unit/0.01ml Soln (100units/ml) SC SCH ×4 (06:33→21:53)
[2022-12-10] MEDS: ACCU-CHEK COMFORT CURVE STRIP VI SCH ×4 (06:45→21:54)
[2022-12-10 08:27] LABS: Band Neutrophils % (manual) 4; Lymphocytes % (manual) 14 (10.0-50.0); Myelocytes % 1
[2022-12-10] MEDS: PANTOPRAZOLE 40 MG/10 ML VIAL INJ IV SCH (09:31)
[2022-12-10] MEDS: DexAMETHasone SOD PHOS 10MG/1ML VIAL INJ IV SCH (09:31)
[2022-12-10] MEDS: CALCITRIOL 0.25 MCG CAP PO SCH (09:31)
[2022-12-10] MEDS: METOPROLOL TARTRATE 25 MG TAB PO SCH ×2 (09:32→21:31)
[2022-12-10] MEDS: AMIODARONE HCL 200 MG TAB PO SCH ×2 (09:32→21:31)
[2022-12-10] MEDS: ASPirin 81 mg TAB PO SCH (09:32)
[2022-12-10] MEDS: cefTRIAXone 1GM/50ML D5W 50 ML IV SCH (09:33)
[2022-12-10] MEDS: AZITHROMYCIN 500MG/ 250ML 250 ML IV SCH (10:18)
[2022-12-10] MEDS ORDERED: SODIUM CHL 0.9% 1000 ML BAG XX ONE (10:45)
[2022-12-10] MEDS: NOREPINEPHRINE 8 MG/250ML KIT 250 ML IV SCH (13:15)
[2022-12-10] MEDS ORDERED: ALBUMIN 25% 100 ML IV ONE ×3 (15:45→17:15)
[2022-12-10] MEDS: INSULIN LANTUS (GLARGINE) 1 /0.01ml (100units/ml) SC SCH ×2 (16:30→21:54)
[2022-12-10] MEDS: MIDAZOLAM DRIP 50 mg/50mL 50 ML IV SCH (17:30)
[2022-12-10] MEDS: TAMSULOSIN HYDROCHLORIDE 0.4 MG CAP PO SCH (17:58)
[2022-12-10] MEDS ORDERED: EPOETIN ALFA-EPBX 4,000 UNIT/ML VIAL SC ONE (21:00)
[2022-12-10] MEDS: hydrALAZINE HCL 20 MG/ML VL IV PRN (21:31)
[2022-12-11] VITALS (108 sets, daily range): BP systolic 90–164; BP diastolic 35–57
[2022-12-11] MEDS: ALBUTEROL SULF 2.5 MG/0.5ML(0.5%) NEB SOLN NEB SCH ×5 (00:05→23:39)
[2022-12-11] MEDS: IPRATROPIUM BROM 0.5 MG/2.5ML INH SOL NEB PRN ×5 (00:05→23:39)
[2022-12-11] MEDS: fentaNYL Drip 2500mCg/250mlNS 250 ML IV SCH (00:45)
[2022-12-11] MEDS: ACETAMINOPHEN 650 MG RECT SUPP PR PRN (03:24)
[2022-12-11 05:35] LABS: Hematocrit 22.4 % (41.0-53.0)
[2022-12-11 05:37] LABS: Hemoglobin 7.7 g/dL (13.5-17.5); Mean Corpuscular Hemoglobin 33.2 pg (28.0-32.0); Mean Corpuscular Hgb Conc. 34.2 g/dL (32.0-36.0); Mean Corpuscular Volume 97.1 fL (80.0-100.0); Red Cell Distribution Width 16.9 % (11.8-14.3); White Blood Cell 11.9 10^3/uL (4.4-10.8)
[2022-12-11] MEDS: BUMETANIDE 2.5mg/10ml (0.25 mg/ml) INJ IV SCH ×2 (05:38→18:00)
[2022-12-11] MEDS: SODIUM BICARBONATE 650 MG TAB PO SCH ×3 (05:39→22:23)
[2022-12-11 05:43] LABS: Basophils % (manual) 0 (0.0-2.0); Blast Cells 0; Metamyelocytes % 0; Promyelocytes % 0; Reactive Lymphocytes 0
[2022-12-11 05:46] LABS: Albumin 2.9 g/dL (3.4-5.0); Calcium 8.3 mg/dL (8.5-10.1)
[2022-12-11 05:51] LABS: BUN/Creatinine Ratio 15.4 (10.0-20.0); Bilirubin, Total 0.9 mg/dL (0.2-1.0); Total Protein 6.1 g/dL (6.4-8.2)
[2022-12-11] MEDS: ACCU-CHEK COMFORT CURVE STRIP VI SCH ×4 (06:31→22:28)
[2022-12-11] MEDS: InsuLIN REG 1unit/0.01ml Soln (100units/ml) SC SCH ×4 (06:31→22:30)
[2022-12-11 07:23] LABS: Band Neutrophils % (manual) 14; Eosinophils % (manual) 1 (0-7); Lymphocytes % (manual) 4 (10.0-50.0); Monocytes % (manual) 6 (0-12); Myelocytes % 5
[2022-12-11] MEDS: PROPOFOL 100 ML IV SCH ×3 (07:29→18:25)
[2022-12-11] MEDS: cefTRIAXone 1GM/50ML D5W 50 ML IV SCH (10:50)
[2022-12-11] MEDS: PANTOPRAZOLE 40 MG/10 ML VIAL INJ IV SCH (10:51)
[2022-12-11] MEDS: DexAMETHasone SOD PHOS 10MG/1ML VIAL INJ IV SCH (10:52)
[2022-12-11] MEDS: ASPirin 81 mg TAB PO SCH (10:52)
[2022-12-11] MEDS: METOPROLOL TARTRATE 25 MG TAB PO SCH ×2 (10:53→22:25)
[2022-12-11] MEDS: AMIODARONE HCL 200 MG TAB PO SCH ×2 (10:53→22:24)
[2022-12-11] MEDS: SPIRONOLACTONE 25 MG TAB PO SCH (10:54)
[2022-12-11] MEDS: CALCITRIOL 0.25 MCG CAP PO SCH (10:56)
[2022-12-11] MEDS: AZITHROMYCIN 500MG/ 250ML 250 ML IV SCH (12:03)
[2022-12-11] MEDS: LISINOPRIL 10 MG TAB PO SCH (12:06)
[2022-12-11] MEDS: NOREPINEPHRINE 8 MG/250ML KIT 250 ML IV SCH (13:15)
[2022-12-11] MEDS: MIDAZOLAM DRIP 50 mg/50mL 50 ML IV SCH (17:30)
[2022-12-11] MEDS ORDERED: Nepro With Carb Steady 1 Liter Bottle GT SCH (18:00)
[2022-12-11] MEDS: TAMSULOSIN HYDROCHLORIDE 0.4 MG CAP PO SCH (18:35)
[2022-12-11] MEDS: INSULIN LANTUS (GLARGINE) 1 /0.01ml (100units/ml) SC SCH (22:29)
[2022-12-11] MEDS: Pro-Stat SF 30ml Vanilla GT SCH (22:30)
[2022-12-12] VITALS (98 sets, daily range): BP systolic 95–179; BP diastolic 35–67
[2022-12-12] MEDS: fentaNYL Drip 2500mCg/250mlNS 250 ML IV SCH (00:45)
[2022-12-12] MEDS: SODIUM BICARBONATE 650 MG TAB PO SCH ×3 (05:30→22:31)
[2022-12-12] MEDS: BUMETANIDE 2.5mg/10ml (0.25 mg/ml) INJ IV SCH ×2 (05:31→18:00)
[2022-12-12] MEDS: PROPOFOL 100 ML IV SCH ×4 (05:35→22:52)
[2022-12-12 06:33] LABS: Hematocrit 22.5 % (41.0-53.0); Hemoglobin 7.8 g/dL (13.5-17.5); Mean Corpuscular Hemoglobin 33.9 pg (28.0-32.0); Mean Corpuscular Hgb Conc. 34.5 g/dL (32.0-36.0); Mean Corpuscular Volume 98.2 fL (80.0-100.0); Red Blood Cells 2.29 10^6/uL (4.5-5.90); Red Cell Distribution Width 16.6 % (11.8-14.3); White Blood Cell 10.2 10^3/uL (4.4-10.8)
[2022-12-12 06:36] LABS: Basophils % (manual) 0 (0.0-2.0); Blast Cells 0; Eosinophils % (manual) 0 (0-7); Metamyelocytes % 0; Promyelocytes % 0; Reactive Lymphocytes 0
[2022-12-12 06:41] LABS: Calcium 8.4 mg/dL (8.5-10.1); Potassium 4.6 mmol/L (3.5-5.1)
[2022-12-12 06:46] LABS: Albumin 2.5 g/dL (3.4-5.0); BUN/Creatinine Ratio 19.2 (10.0-20.0); Bilirubin, Total 0.9 mg/dL (0.2-1.0); Total Protein 5.9 g/dL (6.4-8.2)
[2022-12-12] MEDS ORDERED: SODIUM CHL 0.9% 1000 ML BAG XX ONE (07:00)
[2022-12-12] MEDS: ACCU-CHEK COMFORT CURVE STRIP VI SCH ×4 (07:03→22:31)
[2022-12-12] MEDS: InsuLIN REG 1unit/0.01ml Soln (100units/ml) SC SCH ×4 (07:05→22:33)
[2022-12-12] MEDS: ALBUTEROL SULF 2.5 MG/0.5ML(0.5%) NEB SOLN NEB SCH ×3 (07:11→18:24)
[2022-12-12] MEDS: IPRATROPIUM BROM 0.5 MG/2.5ML INH SOL NEB PRN (07:11)
[2022-12-12 08:57] LABS: Band Neutrophils % (manual) 19; Lymphocytes % (manual) 1 (10.0-50.0); Monocytes % (manual) 2 (0-12); Myelocytes % 5
[2022-12-12 09:02] LABS: % Iron Saturation 22.9 % (20-55)
[2022-12-12] MEDS: CALCITRIOL 0.25 MCG CAP PO SCH (10:00)
[2022-12-12] MEDS: LISINOPRIL 10 MG TAB PO SCH (10:00)
[2022-12-12] MEDS: METOPROLOL TARTRATE 25 MG TAB PO SCH ×3 (10:00→23:00)
[2022-12-12] MEDS: NOREPINEPHRINE 8 MG/250ML KIT 250 ML IV SCH (11:09)
[2022-12-12] MEDS: cefTRIAXone 1GM/50ML D5W 50 ML IV SCH (14:17)
[2022-12-12] MEDS: AZITHROMYCIN 500MG/ 250ML 250 ML IV SCH (14:17)
[2022-12-12] MEDS: ASPirin 81 mg TAB PO SCH (14:18)
[2022-12-12] MEDS: PANTOPRAZOLE 40 MG/10 ML VIAL INJ IV SCH (14:18)
[2022-12-12] MEDS: SPIRONOLACTONE 25 MG TAB PO SCH (14:18)
[2022-12-12] MEDS: AMIODARONE HCL 200 MG TAB PO SCH ×2 (14:18→22:37)
[2022-12-12] MEDS: DexAMETHasone SOD PHOS 10MG/1ML VIAL INJ IV SCH (14:19)
[2022-12-12] MEDS: Pro-Stat SF 30ml Vanilla GT SCH ×2 (14:19→22:30)
[2022-12-12] MEDS: MIDAZOLAM DRIP 50 mg/50mL 50 ML IV SCH (17:30)
[2022-12-12] MEDS: TAMSULOSIN HYDROCHLORIDE 0.4 MG CAP PO SCH (18:00)
[2022-12-12] MEDS: INSULIN LANTUS (GLARGINE) 1 /0.01ml (100units/ml) SC SCH (22:33)
[2022-12-13] VITALS (107 sets, daily range): BP systolic 117–157; BP diastolic 30–61
[2022-12-13] MEDS: ALBUTEROL SULF 2.5 MG/0.5ML(0.5%) NEB SOLN NEB SCH ×4 (00:03→18:20)
[2022-12-13] MEDS: PROPOFOL 100 ML IV SCH (02:33)
[2022-12-13] MEDS: hydrALAZINE HCL 20 MG/ML VL IV PRN (03:37)
[2022-12-13] MEDS: SODIUM BICARBONATE 650 MG TAB PO SCH ×3 (05:57→21:21)
[2022-12-13] MEDS: BUMETANIDE 2.5mg/10ml (0.25 mg/ml) INJ IV SCH ×2 (05:58→17:32)
[2022-12-13] MEDS: InsuLIN REG 1unit/0.01ml Soln (100units/ml) SC SCH ×4 (06:22→21:58)
[2022-12-13] MEDS: ACCU-CHEK COMFORT CURVE STRIP VI SCH ×4 (06:22→21:59)
[2022-12-13] MEDS: IPRATROPIUM BROM 0.5 MG/2.5ML INH SOL NEB PRN ×2 (06:23→12:27)
[2022-12-13] MEDS: DexAMETHasone SOD PHOS 10MG/1ML VIAL INJ IV SCH (08:47)
[2022-12-13] MEDS: PANTOPRAZOLE 40 MG/10 ML VIAL INJ IV SCH (08:47)
[2022-12-13] MEDS: METOPROLOL TARTRATE 25 MG TAB PO SCH ×2 (08:48→21:20)
[2022-12-13] MEDS: LISINOPRIL 10 MG TAB PO SCH (08:48)
[2022-12-13] MEDS: ASPirin 81 mg TAB PO SCH (08:48)
[2022-12-13] MEDS: AZITHROMYCIN 500MG/ 250ML 250 ML IV SCH (08:49)
[2022-12-13] MEDS: SPIRONOLACTONE 25 MG TAB PO SCH (08:49)
[2022-12-13] MEDS: AMIODARONE HCL 200 MG TAB PO SCH ×2 (08:49→21:21)
[2022-12-13] MEDS: CALCITRIOL 0.25 MCG CAP PO SCH (10:00)
[2022-12-13] MEDS: cefTRIAXone 1GM/50ML D5W 50 ML IV SCH (10:09)
[2022-12-13] MEDS: Pro-Stat SF 30ml Vanilla GT SCH ×2 (10:10→21:20)
[2022-12-13] MEDS: NOREPINEPHRINE 8 MG/250ML KIT 250 ML IV SCH (11:31)
[2022-12-13] MEDS: ACETAMINOPHEN 650 MG RECT SUPP PR PRN (15:35)
[2022-12-13] MEDS: MIDAZOLAM DRIP 50 mg/50mL 50 ML IV SCH (17:02)
[2022-12-13] MEDS: TAMSULOSIN HYDROCHLORIDE 0.4 MG CAP PO SCH (17:32)
[2022-12-13] MEDS: INSULIN LANTUS (GLARGINE) 1 /0.01ml (100units/ml) SC SCH (21:59)
[2022-12-14] VITALS (103 sets, daily range): BP systolic 87–189; BP diastolic 19–55
[2022-12-14] MEDS: ALBUTEROL SULF 2.5 MG/0.5ML(0.5%) NEB SOLN NEB SCH ×4 (00:10→18:20)
[2022-12-14 05:17] LABS: Hematocrit 22.4 % (41.0-53.0); Hemoglobin 7.5 g/dL (13.5-17.5); Mean Corpuscular Hemoglobin 32.7 pg (28.0-32.0); Mean Corpuscular Hgb Conc. 33.4 g/dL (32.0-36.0); Red Blood Cells 2.29 10^6/uL (4.5-5.90); Red Cell Distribution Width 16.9 % (11.8-14.3); White Blood Cell 11.9 10^3/uL (4.4-10.8)
[2022-12-14 05:31] LABS: Basophils % (manual) 0 (0.0-2.0); Blast Cells 0; Eosinophils % (manual) 0 (0-7); Metamyelocytes % 0; Promyelocytes % 0; Reactive Lymphocytes 0
[2022-12-14 05:34] LABS: Albumin 2.2 g/dL (3.4-5.0); Calcium 7.9 mg/dL (8.5-10.1); Potassium 4.9 mmol/L (3.5-5.1)
[2022-12-14 05:37] LABS: BUN/Creatinine Ratio 20.9 (10.0-20.0)
[2022-12-14 05:40] LABS: Bilirubin, Total 0.5 mg/dL (0.2-1.0); Total Protein 5.9 g/dL (6.4-8.2)
[2022-12-14] MEDS: BUMETANIDE 2.5mg/10ml (0.25 mg/ml) INJ IV SCH ×2 (05:44→17:50)
[2022-12-14] MEDS: SODIUM BICARBONATE 650 MG TAB PO SCH ×3 (05:44→22:01)
[2022-12-14 05:45] LABS: % Iron Saturation 17.8 % (20-55)
[2022-12-14] MEDS: ACCU-CHEK COMFORT CURVE STRIP VI SCH ×4 (06:13→22:05)
[2022-12-14] MEDS: InsuLIN REG 1unit/0.01ml Soln (100units/ml) SC SCH ×4 (06:13→22:06)
[2022-12-14] MEDS: IPRATROPIUM BROM 0.5 MG/2.5ML INH SOL NEB PRN ×2 (06:25→18:20)
[2022-12-14 06:31] LABS: Band Neutrophils % (manual) 5; Lymphocytes % (manual) 1 (10.0-50.0); Monocytes % (manual) 5 (0-12); Myelocytes % 1
[2022-12-14] MEDS ORDERED: SODIUM CHL 0.9% 1000 ML BAG XX ONE (07:00)
[2022-12-14] MEDS: cefTRIAXone 1GM/50ML D5W 50 ML IV SCH (09:30)
[2022-12-14] MEDS: PANTOPRAZOLE 40 MG/10 ML VIAL INJ IV SCH (09:31)
[2022-12-14] MEDS: DexAMETHasone SOD PHOS 10MG/1ML VIAL INJ IV SCH (09:31)
[2022-12-14] MEDS: Pro-Stat SF 30ml Vanilla GT SCH ×2 (09:31→22:01)
[2022-12-14] MEDS: AMIODARONE HCL 200 MG TAB PO SCH ×2 (09:32→22:02)
[2022-12-14] MEDS: SPIRONOLACTONE 25 MG TAB PO SCH (09:32)
[2022-12-14] MEDS: LISINOPRIL 10 MG TAB PO SCH (10:00)
[2022-12-14] MEDS: METOPROLOL TARTRATE 25 MG TAB PO SCH ×2 (10:00→22:01)
[2022-12-14] MEDS: CALCITRIOL 0.25 MCG CAP PO SCH (10:00)
[2022-12-14] MEDS: ASPirin 81 mg TAB PO SCH (10:31)
[2022-12-14] MEDS: NOREPINEPHRINE 8 MG/250ML KIT 250 ML IV SCH (13:15)
[2022-12-14] MEDS ORDERED: ALBUMIN 25% 100 ML IV ONE (14:50)
[2022-12-14] MEDS ORDERED: fentaNYL Drip 2500mCg/250mlNS 250 ML IV ONE (16:00)
[2022-12-14] MEDS: fentaNYL Drip 2500mCg/250mlNS 250 ML IV SCH (16:30)
[2022-12-14] MEDS: MIDAZOLAM DRIP 50 mg/50mL 50 ML IV SCH (17:30)
[2022-12-14] MEDS: TAMSULOSIN HYDROCHLORIDE 0.4 MG CAP PO SCH (17:50)
[2022-12-14] MEDS: INSULIN LANTUS (GLARGINE) 1 /0.01ml (100units/ml) SC SCH (22:05)
[2022-12-14] MEDS: PROPOFOL 100 ML IV SCH (22:15)
[2022-12-15] VITALS (103 sets, daily range): BP systolic 104–174; BP diastolic 24–65
[2022-12-15] MEDS: ALBUTEROL SULF 2.5 MG/0.5ML(0.5%) NEB SOLN NEB SCH ×6 (00:06→22:22)
[2022-12-15] MEDS: IPRATROPIUM BROM 0.5 MG/2.5ML INH SOL NEB PRN ×2 (00:07→06:30)
[2022-12-15] MEDS: SODIUM BICARBONATE 650 MG TAB PO SCH ×2 (05:17→14:44)
[2022-12-15] MEDS: BUMETANIDE 2.5mg/10ml (0.25 mg/ml) INJ IV SCH ×2 (05:18→18:10)
[2022-12-15 05:54] LABS: Hemoglobin 7.8 g/dL (13.5-17.5); Mean Corpuscular Hemoglobin 32.2 pg (28.0-32.0); Mean Corpuscular Hgb Conc. 33.8 g/dL (32.0-36.0); Mean Corpuscular Volume 95.4 fL (80.0-100.0); Red Blood Cells 2.42 10^6/uL (4.5-5.90); White Blood Cell 19.3 10^3/uL (4.4-10.8)
[2022-12-15 05:55] LABS: Basophils # (auto) 0 10 ^3/uL (0-0.2); Basophils % (auto) 0.1 % (0.0-2.0); Eosinophils # (auto) 0 10 ^3/uL (0-0.8); Lymphocytes # (auto) 0.2 10 ^3/uL (0.4-5.4); Lymphocytes % (auto) 1.1 % (10.0-50.0); Monocytes # (auto) 0.9 10 ^3/uL (0-1.3); Monocytes % (auto) 4.6 % (0.0-12.0); Neutrophils # (auto) 18.4 10 ^3/uL (1.6-8.6); Neutrophils % (auto) 94.2 % (37.0-80.0)
[2022-12-15 05:56] LABS: Basophils % (manual) 0 (0.0-2.0); Blast Cells 0; Eosinophils % (manual) 0 (0-7); Metamyelocytes % 0; Myelocytes % 0; Promyelocytes % 0; Reactive Lymphocytes 0
[2022-12-15] MEDS: InsuLIN REG 1unit/0.01ml Soln (100units/ml) SC SCH ×3 (06:25→17:29)
[2022-12-15] MEDS: ACCU-CHEK COMFORT CURVE STRIP VI SCH ×3 (06:26→17:36)
[2022-12-15 06:28] LABS: Albumin 2.6 g/dL (3.4-5.0); Calcium 8.3 mg/dL (8.5-10.1); Potassium 4.6 mmol/L (3.5-5.1)
[2022-12-15 06:31] LABS: Bilirubin, Total 0.7 mg/dL (0.2-1.0); Total Protein 6.6 g/dL (6.4-8.2)
[2022-12-15 06:32] LABS: BUN/Creatinine Ratio 20.2 (10.0-20.0)
[2022-12-15 07:46] LABS: Band Neutrophils % (manual) 2; Lymphocytes % (manual) 6 (10.0-50.0); Monocytes % (manual) 1 (0-12)
[2022-12-15] MEDS: CALCITRIOL 0.25 MCG CAP PO SCH (10:00)
[2022-12-15] MEDS: IPRATROPIUM BROM 0.5 MG/2.5ML INH SOL NEB SCH ×4 (10:17→22:22)
[2022-12-15] MEDS: PANTOPRAZOLE 40 MG/10 ML VIAL INJ IV SCH (10:26)
[2022-12-15] MEDS: ASPirin 81 mg TAB PO SCH (10:26)
[2022-12-15] MEDS: QUEtiapine FUMARATE 25 MG TAB PO SCH (10:26)
[2022-12-15] MEDS: DexAMETHasone SOD PHOS 10MG/1ML VIAL INJ IV SCH (10:26)
[2022-12-15] MEDS: METOPROLOL TARTRATE 25 MG TAB PO SCH (10:27)
[2022-12-15] MEDS: LISINOPRIL 10 MG TAB PO SCH (10:27)
[2022-12-15] MEDS: AMIODARONE HCL 200 MG TAB PO SCH (10:27)
[2022-12-15] MEDS: Pro-Stat SF 30ml Vanilla GT SCH (10:28)
[2022-12-15] MEDS: SPIRONOLACTONE 25 MG TAB PO SCH (10:28)
[2022-12-15] MEDS: NOREPINEPHRINE 8 MG/250ML KIT 250 ML IV SCH (13:15)
[2022-12-15] MEDS: fentaNYL Drip 2500mCg/250mlNS 250 ML IV SCH (16:00)
[2022-12-15] MEDS: MIDAZOLAM DRIP 50 mg/50mL 50 ML IV SCH (17:30)
[2022-12-15] MEDS: TAMSULOSIN HYDROCHLORIDE 0.4 MG CAP PO SCH (18:10)
[2022-12-16] VITALS (100 sets, daily range): BP systolic 107–195; BP diastolic 14–64
[2022-12-16] MEDS: Pro-Stat SF 30ml Vanilla GT SCH ×3 (00:49→21:49)
[2022-12-16] MEDS: SODIUM BICARBONATE 650 MG TAB PO SCH ×4 (00:49→21:39)
[2022-12-16] MEDS: METOPROLOL TARTRATE 25 MG TAB PO SCH ×3 (00:50→21:48)
[2022-12-16] MEDS: AMIODARONE HCL 200 MG TAB PO SCH ×3 (00:50→21:49)
[2022-12-16] MEDS: ACCU-CHEK COMFORT CURVE STRIP VI SCH ×5 (00:51→21:50)
[2022-12-16] MEDS: InsuLIN REG 1unit/0.01ml Soln (100units/ml) SC SCH ×5 (01:16→21:51)
[2022-12-16] MEDS: INSULIN LANTUS (GLARGINE) 1 /0.01ml (100units/ml) SC SCH ×2 (01:16→21:50)
[2022-12-16] MEDS: IPRATROPIUM BROM 0.5 MG/2.5ML INH SOL NEB SCH ×6 (02:17→22:13)
[2022-12-16] MEDS: ALBUTEROL SULF 2.5 MG/0.5ML(0.5%) NEB SOLN NEB SCH ×6 (02:17→22:13)
[2022-12-16] MEDS: BUMETANIDE 2.5mg/10ml (0.25 mg/ml) INJ IV SCH ×2 (06:00→16:55)
[2022-12-16 07:33] LABS: Albumin 2.3 g/dL (3.4-5.0); Calcium 8.2 mg/dL (8.5-10.1)
[2022-12-16 07:36] LABS: BUN/Creatinine Ratio 23.1 (10.0-20.0); Bilirubin, Total 0.7 mg/dL (0.2-1.0); Total Protein 5.9 g/dL (6.4-8.2)
[2022-12-16 09:05] LABS: Potassium 5.6 mmol/L (3.5-5.1)
[2022-12-16 09:14] LABS: Basophils # (auto) 0 10 ^3/uL (0-0.2); Basophils % (auto) 0.2 % (0.0-2.0); Eosinophils # (auto) 0 10 ^3/uL (0-0.8); Hemoglobin 7.3 g/dL (13.5-17.5); Lymphocytes # (auto) 0.2 10 ^3/uL (0.4-5.4)
[2022-12-16 09:15] LABS: Hematocrit 22.2 % (41.0-53.0); Lymphocytes % (auto) 1.1 % (10.0-50.0); Mean Corpuscular Hemoglobin 31.9 pg (28.0-32.0); Mean Corpuscular Hgb Conc. 32.8 g/dL (32.0-36.0); Mean Corpuscular Volume 97.2 fL (80.0-100.0); Monocytes # (auto) 0.5 10 ^3/uL (0-1.3); Monocytes % (auto) 3.8 % (0.0-12.0); Neutrophils # (auto) 13.6 10 ^3/uL (1.6-8.6); Neutrophils % (auto) 94.9 % (37.0-80.0); Red Blood Cells 2.28 10^6/uL (4.5-5.90); White Blood Cell 14.4 10^3/uL (4.4-10.8)
[2022-12-16] MEDS ORDERED: SODIUM ZIRCONIUM CYCL 10 GM PAK PO ONE (11:45)
[2022-12-16] MEDS: PANTOPRAZOLE 40 MG/10 ML VIAL INJ IV SCH (12:05)
[2022-12-16] MEDS: ASPirin 81 mg TAB PO SCH (12:06)
[2022-12-16] MEDS: DexAMETHasone SOD PHOS 10MG/1ML VIAL INJ IV SCH (12:06)
[2022-12-16] MEDS: LISINOPRIL 10 MG TAB PO SCH (12:07)
[2022-12-16] MEDS: SPIRONOLACTONE 25 MG TAB PO SCH (12:07)
[2022-12-16] MEDS: PROPOFOL 100 ML IV SCH (12:12)
[2022-12-16] MEDS: NOREPINEPHRINE 8 MG/250ML KIT 250 ML IV SCH (13:15)
[2022-12-16] MEDS: QUEtiapine FUMARATE 25 MG TAB PO SCH (15:18)
[2022-12-16] MEDS: hydrALAZINE HCL 20 MG/ML VL IV PRN (15:19)
[2022-12-16] MEDS: CALCITRIOL 0.25 MCG CAP PO SCH (15:19)
[2022-12-16] MEDS: fentaNYL Drip 2500mCg/250mlNS 250 ML IV SCH (16:00)
[2022-12-16] MEDS: TAMSULOSIN HYDROCHLORIDE 0.4 MG CAP PO SCH ×2 (16:56→17:57)
[2022-12-16] MEDS: MIDAZOLAM DRIP 50 mg/50mL 50 ML IV SCH (16:57)
[2022-12-17] VITALS (90 sets, daily range): BP systolic 79–169; BP diastolic 17–50
[2022-12-17] MEDS: IPRATROPIUM BROM 0.5 MG/2.5ML INH SOL NEB SCH ×6 (02:24→22:30)
[2022-12-17] MEDS: ALBUTEROL SULF 2.5 MG/0.5ML(0.5%) NEB SOLN NEB SCH ×6 (02:24→22:30)
[2022-12-17] MEDS: hydrALAZINE HCL 20 MG/ML VL IV PRN (02:38)
[2022-12-17] MEDS: fentaNYL Drip 2500mCg/250mlNS 250 ML IV SCH ×2 (03:21→22:18)
[2022-12-17] MEDS: BUMETANIDE 2.5mg/10ml (0.25 mg/ml) INJ IV SCH ×2 (05:55→17:40)
[2022-12-17] MEDS: SODIUM BICARBONATE 650 MG TAB PO SCH ×3 (05:55→21:57)
[2022-12-17 06:32] LABS: Basophils # (auto) 0 10 ^3/uL (0-0.2); Basophils % (auto) 0.2 % (0.0-2.0); Eosinophils # (auto) 0 10 ^3/uL (0-0.8); Hemoglobin 7.5 g/dL (13.5-17.5); Mean Corpuscular Hgb Conc. 33.4 g/dL (32.0-36.0); Red Blood Cells 2.34 10^6/uL (4.5-5.90)
[2022-12-17 06:36] LABS: Albumin 2.4 g/dL (3.4-5.0); Calcium 8.8 mg/dL (8.5-10.1); Potassium 5.3 mmol/L (3.5-5.1)
[2022-12-17 06:37] LABS: Hematocrit 22.4 % (41.0-53.0); Lymphocytes # (auto) 0.2 10 ^3/uL (0.4-5.4); Lymphocytes % (auto) 1.3 % (10.0-50.0); Mean Corpuscular Hemoglobin 31.9 pg (28.0-32.0); Mean Corpuscular Volume 95.6 fL (80.0-100.0); Monocytes # (auto) 0.7 10 ^3/uL (0-1.3); Monocytes % (auto) 5.4 % (0.0-12.0); Neutrophils # (auto) 12.8 10 ^3/uL (1.6-8.6); Neutrophils % (auto) 93.1 % (37.0-80.0); White Blood Cell 13.7 10^3/uL (4.4-10.8)
[2022-12-17 06:55] LABS: BUN/Creatinine Ratio 26.9 (10.0-20.0); Bilirubin, Total 0.8 mg/dL (0.2-1.0)
[2022-12-17] MEDS ORDERED: SODIUM CHL 0.9% 1000 ML BAG XX ONE (07:00)
[2022-12-17] MEDS: ACCU-CHEK COMFORT CURVE STRIP VI SCH ×4 (07:21→22:05)
[2022-12-17] MEDS: InsuLIN REG 1unit/0.01ml Soln (100units/ml) SC SCH ×4 (07:21→22:00)
[2022-12-17] MEDS: METOPROLOL TARTRATE 25 MG TAB PO SCH ×2 (10:00→22:29)
[2022-12-17] MEDS: SPIRONOLACTONE 25 MG TAB PO SCH (10:00)
[2022-12-17] MEDS: CALCITRIOL 0.25 MCG CAP PO SCH (10:00)
[2022-12-17] MEDS: LISINOPRIL 10 MG TAB PO SCH (10:00)
[2022-12-17] MEDS: AMIODARONE HCL 200 MG TAB PO SCH ×2 (10:00→21:57)
[2022-12-17] MEDS: DexAMETHasone SOD PHOS 10MG/1ML VIAL INJ IV SCH (10:23)
[2022-12-17] MEDS: ASPirin 81 mg TAB PO SCH (10:23)
[2022-12-17] MEDS: QUEtiapine FUMARATE 25 MG TAB PO SCH (10:23)
[2022-12-17] MEDS: PANTOPRAZOLE 40 MG/10 ML VIAL INJ IV SCH (10:23)
[2022-12-17] MEDS: Pro-Stat SF 30ml Vanilla GT SCH ×2 (10:25→22:24)
[2022-12-17] MEDS: NOREPINEPHRINE 8 MG/250ML KIT 250 ML IV SCH (12:36)
[2022-12-17] MEDS ORDERED: ALBUMIN 25% 100 ML IV ONE (13:52)
[2022-12-17 14:59] LABS: % Iron Saturation 30.8 % (20-55)
[2022-12-17] MEDS: MIDAZOLAM DRIP 50 mg/50mL 50 ML IV SCH (17:30)
[2022-12-17] MEDS: TAMSULOSIN HYDROCHLORIDE 0.4 MG CAP PO SCH (17:33)
[2022-12-17] MEDS ORDERED: EPOETIN ALFA-EPBX 4,000 UNIT/ML VIAL SC ONE (21:00)
[2022-12-17] MEDS: INSULIN LANTUS (GLARGINE) 1 /0.01ml (100units/ml) SC SCH (22:05)
[2022-12-18] VITALS (103 sets, daily range): BP systolic 93–169; BP diastolic 18–40
[2022-12-18] MEDS: IPRATROPIUM BROM 0.5 MG/2.5ML INH SOL NEB SCH ×6 (02:31→22:01)
[2022-12-18] MEDS: ALBUTEROL SULF 2.5 MG/0.5ML(0.5%) NEB SOLN NEB SCH ×6 (02:31→22:01)
[2022-12-18 05:24] LABS: Eosinophils # (auto) 0 10 ^3/uL (0-0.8); Hemoglobin 7.6 g/dL (13.5-17.5); Lymphocytes # (auto) 0.3 10 ^3/uL (0.4-5.4); Neutrophils # (auto) 18.9 10 ^3/uL (1.6-8.6); Neutrophils % (auto) 92.1 % (37.0-80.0); White Blood Cell 20.5 10^3/uL (4.4-10.8)
[2022-12-18 05:26] LABS: Basophils # (auto) 0 10 ^3/uL (0-0.2); Basophils % (auto) 0.1 % (0.0-2.0); Hematocrit 22.8 % (41.0-53.0); Lymphocytes % (auto) 1.2 % (10.0-50.0); Mean Corpuscular Hemoglobin 32.2 pg (28.0-32.0); Mean Corpuscular Hgb Conc. 33.1 g/dL (32.0-36.0); Mean Corpuscular Volume 97.1 fL (80.0-100.0); Monocytes # (auto) 1.4 10 ^3/uL (0-1.3); Monocytes % (auto) 6.6 % (0.0-12.0); Red Blood Cells 2.35 10^6/uL (4.5-5.90)
[2022-12-18 05:49] LABS: Albumin 2.7 g/dL (3.4-5.0); Calcium 8.5 mg/dL (8.5-10.1); Potassium 4.7 mmol/L (3.5-5.1)
[2022-12-18 05:54] LABS: BUN/Creatinine Ratio 22.4 (10.0-20.0); Bilirubin, Total 0.9 mg/dL (0.2-1.0); Total Protein 6.3 g/dL (6.4-8.2)
[2022-12-18] MEDS: BUMETANIDE 2.5mg/10ml (0.25 mg/ml) INJ IV SCH ×2 (06:00→18:00)
[2022-12-18] MEDS: SODIUM BICARBONATE 650 MG TAB PO SCH ×3 (06:01→22:18)
[2022-12-18] MEDS: ACCU-CHEK COMFORT CURVE STRIP VI SCH ×4 (06:49→22:18)
[2022-12-18] MEDS: InsuLIN REG 1unit/0.01ml Soln (100units/ml) SC SCH ×4 (06:49→22:22)
[2022-12-18] MEDS: METOPROLOL TARTRATE 25 MG TAB PO SCH ×2 (10:00→22:00)
[2022-12-18] MEDS: LISINOPRIL 10 MG TAB PO SCH (10:00)
[2022-12-18] MEDS: Pro-Stat SF 30ml Vanilla GT SCH ×2 (10:00→22:18)
[2022-12-18] MEDS: PANTOPRAZOLE 40 MG/10 ML VIAL INJ IV SCH (10:25)
[2022-12-18] MEDS: DexAMETHasone SOD PHOS 10MG/1ML VIAL INJ IV SCH (10:25)
[2022-12-18] MEDS: SPIRONOLACTONE 25 MG TAB PO SCH (10:45)
[2022-12-18] MEDS: QUEtiapine FUMARATE 25 MG TAB PO SCH (10:45)
[2022-12-18] MEDS: AMIODARONE HCL 200 MG TAB PO SCH ×2 (10:45→22:18)
[2022-12-18] MEDS: ASPirin 81 mg TAB PO SCH (10:45)
[2022-12-18] MEDS: CALCITRIOL 0.25 MCG CAP PO SCH (14:33)
[2022-12-18] MEDS: MIDAZOLAM DRIP 50 mg/50mL 50 ML IV SCH (17:30)
[2022-12-18] MEDS: TAMSULOSIN HYDROCHLORIDE 0.4 MG CAP PO SCH (18:00)
[2022-12-18] MEDS: NOREPINEPHRINE 8 MG/250ML KIT 250 ML IV SCH (21:16)
[2022-12-18] MEDS: INSULIN LANTUS (GLARGINE) 1 /0.01ml (100units/ml) SC SCH (22:23)
[2022-12-19] VITALS (102 sets, daily range): BP systolic 116–169; BP diastolic 16–49
[2022-12-19] MEDS: ALBUTEROL SULF 2.5 MG/0.5ML(0.5%) NEB SOLN NEB SCH ×5 (02:06→18:38)
[2022-12-19] MEDS: IPRATROPIUM BROM 0.5 MG/2.5ML INH SOL NEB SCH ×5 (02:06→18:38)
[2022-12-19 05:57] LABS: Basophils # (auto) 0 10 ^3/uL (0-0.2); Eosinophils # (auto) 0 10 ^3/uL (0-0.8); Hemoglobin 7.8 g/dL (13.5-17.5); Lymphocytes # (auto) 0.2 10 ^3/uL (0.4-5.4); Mean Corpuscular Hgb Conc. 32.7 g/dL (32.0-36.0); White Blood Cell 15.3 10^3/uL (4.4-10.8)
[2022-12-19 05:59] LABS: Basophils % (auto) 0.2 % (0.0-2.0); Lymphocytes % (auto) 1.2 % (10.0-50.0); Mean Corpuscular Volume 97.8 fL (80.0-100.0); Monocytes # (auto) 1.2 10 ^3/uL (0-1.3); Neutrophils # (auto) 13.9 10 ^3/uL (1.6-8.6); Neutrophils % (auto) 90.6 % (37.0-80.0); Nucleated Red Blood Cells % 0.1 %; Red Blood Cells 2.45 10^6/uL (4.5-5.90); Red Cell Distribution Width 16.8 % (11.8-14.3)
[2022-12-19 06:00] LABS: % Iron Saturation 42.2 % (20-55)
[2022-12-19] MEDS: BUMETANIDE 2.5mg/10ml (0.25 mg/ml) INJ IV SCH ×2 (06:00→18:42)
[2022-12-19 06:04] LABS: Potassium 5.1 mmol/L (3.5-5.1)
[2022-12-19 06:16] LABS: Albumin 2.6 g/dL (3.4-5.0); BUN/Creatinine Ratio 24.3 (10.0-20.0); Bilirubin, Total 0.8 mg/dL (0.2-1.0); Calcium 8.6 mg/dL (8.5-10.1); Total Protein 6.4 g/dL (6.4-8.2)
[2022-12-19] MEDS: SODIUM BICARBONATE 650 MG TAB PO SCH ×3 (06:23→21:39)
[2022-12-19] MEDS: ACCU-CHEK COMFORT CURVE STRIP VI SCH ×4 (06:46→22:17)
[2022-12-19] MEDS: InsuLIN REG 1unit/0.01ml Soln (100units/ml) SC SCH ×4 (06:46→22:29)
[2022-12-19] MEDS ORDERED: SODIUM CHL 0.9% 1000 ML BAG XX ONE (07:00)
[2022-12-19] MEDS: fentaNYL Drip 2500mCg/250mlNS 250 ML IV SCH (08:43)
[2022-12-19] MEDS: Pro-Stat SF 30ml Vanilla GT SCH ×2 (09:12→21:41)
[2022-12-19] MEDS: METOPROLOL TARTRATE 25 MG TAB PO SCH ×2 (09:12→21:41)
[2022-12-19] MEDS: LISINOPRIL 10 MG TAB PO SCH (09:13)
[2022-12-19] MEDS: DexAMETHasone SOD PHOS 10MG/1ML VIAL INJ IV SCH (09:18)
[2022-12-19] MEDS: SPIRONOLACTONE 25 MG TAB PO SCH (09:19)
[2022-12-19] MEDS: PANTOPRAZOLE 40 MG/10 ML VIAL INJ IV SCH (09:19)
[2022-12-19] MEDS: AMIODARONE HCL 200 MG TAB PO SCH ×2 (09:19→21:39)
[2022-12-19] MEDS: QUEtiapine FUMARATE 25 MG TAB PO SCH (09:19)
[2022-12-19] MEDS: ASPirin 81 mg TAB PO SCH (09:19)
[2022-12-19] MEDS: CALCITRIOL 0.25 MCG CAP PO SCH (09:23)
[2022-12-19 13:55] LABS: INR 1.17 (0.9-1.15); Partial Thromboplastin Time 25.8 sec (24.6-33.4)
[2022-12-19] MEDS ORDERED: Glucerna 1.2 Cal 1Liter BOTTLE GT SCH (15:30)
[2022-12-19] MEDS: MIDAZOLAM DRIP 50 mg/50mL 50 ML IV SCH (17:30)
[2022-12-19] MEDS: NOREPINEPHRINE 8 MG/250ML KIT 250 ML IV SCH (17:55)
[2022-12-19] MEDS: TAMSULOSIN HYDROCHLORIDE 0.4 MG CAP PO SCH (18:00)
[2022-12-19] MEDS: INSULIN LANTUS (GLARGINE) 1 /0.01ml (100units/ml) SC SCH (22:28)
[2022-12-20] VITALS (85 sets, daily range): BP systolic 89–147; BP diastolic 16–57
[2022-12-20] MEDS: ALBUTEROL SULF 2.5 MG/0.5ML(0.5%) NEB SOLN NEB SCH ×7 (00:09→22:10)
[2022-12-20] MEDS: IPRATROPIUM BROM 0.5 MG/2.5ML INH SOL NEB SCH ×7 (00:09→22:10)
[2022-12-20 05:45] LABS: Basophils # (auto) 0 10 ^3/uL (0-0.2); Eosinophils # (auto) 0 10 ^3/uL (0-0.8); Lymphocytes # (auto) 0.2 10 ^3/uL (0.4-5.4)
[2022-12-20 05:49] LABS: Basophils % (auto) 0.1 % (0.0-2.0); Hematocrit 22.2 % (41.0-53.0); Hemoglobin 7.3 g/dL (13.5-17.5); Lymphocytes % (auto) 1.2 % (10.0-50.0); Mean Corpuscular Hemoglobin 32.3 pg (28.0-32.0); Mean Corpuscular Hgb Conc. 32.8 g/dL (32.0-36.0); Mean Corpuscular Volume 98.4 fL (80.0-100.0); Monocytes % (auto) 6.3 % (0.0-12.0); Neutrophils % (auto) 92.4 % (37.0-80.0); Red Blood Cells 2.25 10^6/uL (4.5-5.90); Red Cell Distribution Width 16.4 % (11.8-14.3); White Blood Cell 15.1 10^3/uL (4.4-10.8)
[2022-12-20 06:19] LABS: Albumin 2.4 g/dL (3.4-5.0); Calcium 8.1 mg/dL (8.5-10.1)
[2022-12-20] MEDS: BUMETANIDE 2.5mg/10ml (0.25 mg/ml) INJ IV SCH ×2 (06:19→18:52)
[2022-12-20] MEDS: SODIUM BICARBONATE 650 MG TAB PO SCH ×3 (06:19→22:26)
[2022-12-20] MEDS: ACCU-CHEK COMFORT CURVE STRIP VI SCH ×4 (06:19→22:51)
[2022-12-20] MEDS: InsuLIN REG 1unit/0.01ml Soln (100units/ml) SC SCH ×4 (06:19→22:51)
[2022-12-20 06:35] LABS: BUN/Creatinine Ratio 25.4 (10.0-20.0); Bilirubin, Total 0.5 mg/dL (0.2-1.0); Total Protein 6.2 g/dL (6.4-8.2)
[2022-12-20 06:45] LABS: Potassium 5.7 mmol/L (3.5-5.1)
[2022-12-20] MEDS: LISINOPRIL 10 MG TAB PO SCH (10:00)
[2022-12-20] MEDS: SPIRONOLACTONE 25 MG TAB PO SCH (10:00)
[2022-12-20] MEDS: CALCITRIOL 0.25 MCG CAP PO SCH (10:00)
[2022-12-20] MEDS: METOPROLOL TARTRATE 25 MG TAB PO SCH ×2 (10:00→22:00)
[2022-12-20] MEDS: AMIODARONE HCL 200 MG TAB PO SCH ×2 (10:00→22:26)
[2022-12-20] MEDS: PANTOPRAZOLE 40 MG/10 ML VIAL INJ IV SCH (11:30)
[2022-12-20] MEDS: QUEtiapine FUMARATE 25 MG TAB PO SCH (11:31)
[2022-12-20] MEDS: DexAMETHasone SOD PHOS 10MG/1ML VIAL INJ IV SCH (11:31)
[2022-12-20] MEDS: ASPirin 81 mg TAB PO SCH (11:31)
[2022-12-20] MEDS: Pro-Stat SF 30ml Vanilla GT SCH ×2 (11:32→22:26)
[2022-12-20] MEDS: NOREPINEPHRINE 8 MG/250ML KIT 250 ML IV SCH (13:15)
[2022-12-20] MEDS: fentaNYL Drip 2500mCg/250mlNS 250 ML IV SCH (16:00)
[2022-12-20] MEDS: MIDAZOLAM DRIP 50 mg/50mL 50 ML IV SCH (17:30)
[2022-12-20] MEDS: TAMSULOSIN HYDROCHLORIDE 0.4 MG CAP PO SCH (18:00)
[2022-12-20] MEDS: METOCLOPRAMIDE HCL 5MG/ml INJ 2ml VIAL IV SCH (22:26)
[2022-12-20] MEDS: INSULIN LANTUS (GLARGINE) 1 /0.01ml (100units/ml) SC SCH (22:51)
[2022-12-21] VITALS (68 sets, daily range): BP systolic 99–177; BP diastolic 21–132
[2022-12-21] MEDS: IPRATROPIUM BROM 0.5 MG/2.5ML INH SOL NEB SCH ×6 (02:23→21:57)
[2022-12-21] MEDS: ALBUTEROL SULF 2.5 MG/0.5ML(0.5%) NEB SOLN NEB SCH ×6 (02:23→21:57)
[2022-12-21] MEDS: SODIUM BICARBONATE 650 MG TAB PO SCH ×3 (05:47→22:15)
[2022-12-21] MEDS: METOCLOPRAMIDE HCL 5MG/ml INJ 2ml VIAL IV SCH ×3 (05:47→22:14)
[2022-12-21] MEDS: BUMETANIDE 2.5mg/10ml (0.25 mg/ml) INJ IV SCH ×2 (06:20→20:40)
[2022-12-21] MEDS: InsuLIN REG 1unit/0.01ml Soln (100units/ml) SC SCH ×4 (06:21→22:00)
[2022-12-21] MEDS: ACCU-CHEK COMFORT CURVE STRIP VI SCH ×4 (06:21→22:16)
[2022-12-21 06:51] LABS: Mean Corpuscular Volume 97.3 fL (80.0-100.0)
[2022-12-21 06:53] LABS: Hematocrit 23.1 % (41.0-53.0); Hemoglobin 7.6 g/dL (13.5-17.5); Mean Corpuscular Hemoglobin 32.1 pg (28.0-32.0); Red Blood Cells 2.37 10^6/uL (4.5-5.90); Red Cell Distribution Width 16.9 % (11.8-14.3); White Blood Cell 19.3 10^3/uL (4.4-10.8)
[2022-12-21 07:03] LABS: Basophils % (manual) 0 (0.0-2.0); Blast Cells 0; Eosinophils % (manual) 0 (0-7); Metamyelocytes % 0; Myelocytes % 0; Promyelocytes % 0; Reactive Lymphocytes 0
[2022-12-21 07:08] LABS: Albumin 2.5 g/dL (3.4-5.0); Calcium 7.9 mg/dL (8.5-10.1)
[2022-12-21 07:13] LABS: BUN/Creatinine Ratio 28.7 (10.0-20.0); Bilirubin, Total 0.7 mg/dL (0.2-1.0)
[2022-12-21 07:35] LABS: Potassium 6.7 mmol/L (3.5-5.1)
[2022-12-21 08:38] LABS: Band Neutrophils % (manual) 5; Lymphocytes % (manual) 3 (10.0-50.0); Monocytes % (manual) 5 (0-12)
[2022-12-21] MEDS: SPIRONOLACTONE 25 MG TAB PO SCH (10:00)
[2022-12-21] MEDS: METOPROLOL TARTRATE 25 MG TAB PO SCH ×2 (10:00→22:15)
[2022-12-21] MEDS: LISINOPRIL 10 MG TAB PO SCH (10:00)
[2022-12-21] MEDS: DexAMETHasone SOD PHOS 4 MG/1ML SDV INJ IV SCH (10:43)
[2022-12-21] MEDS: PANTOPRAZOLE 40 MG/10 ML VIAL INJ IV SCH (10:44)
[2022-12-21] MEDS: AMIODARONE HCL 200 MG TAB PO SCH ×2 (10:44→22:18)
[2022-12-21] MEDS: QUEtiapine FUMARATE 25 MG TAB PO SCH (10:44)
[2022-12-21] MEDS: CALCITRIOL 0.25 MCG CAP PO SCH (10:47)
[2022-12-21] MEDS: ASPirin 81 mg TAB PO SCH (10:48)
[2022-12-21] MEDS: Pro-Stat SF 30ml Vanilla GT SCH ×2 (10:48→22:15)
[2022-12-21] MEDS ORDERED: SODIUM ZIRCONIUM CYCL 10 GM PAK PO ONE (12:15)
[2022-12-21] MEDS: NOREPINEPHRINE 8 MG/250ML KIT 250 ML IV SCH (13:15)
[2022-12-21] MEDS: fentaNYL Drip 2500mCg/250mlNS 250 ML IV SCH (13:38)
[2022-12-21] MEDS ORDERED: SODIUM CHL 0.9% 1000 ML BAG XX ONE (16:00)
[2022-12-21] MEDS: MIDAZOLAM DRIP 50 mg/50mL 50 ML IV SCH (17:30)
[2022-12-21] MEDS: TAMSULOSIN HYDROCHLORIDE 0.4 MG CAP PO SCH (18:00)
[2022-12-21] MEDS ORDERED: EPOETIN ALFA-EPBX 10,000 UNIT/1ML VIAL SC ONE (21:00)
[2022-12-21] MEDS: INSULIN LANTUS (GLARGINE) 1 /0.01ml (100units/ml) SC SCH (22:17)
[2022-12-22] VITALS (106 sets, daily range): BP systolic 81–190; BP diastolic 11–57
[2022-12-22] MEDS: IPRATROPIUM BROM 0.5 MG/2.5ML INH SOL NEB SCH ×6 (02:09→22:13)
[2022-12-22] MEDS: ALBUTEROL SULF 2.5 MG/0.5ML(0.5%) NEB SOLN NEB SCH ×6 (02:09→22:13)
[2022-12-22] MEDS: SODIUM BICARBONATE 650 MG TAB PO SCH ×3 (06:32→22:31)
[2022-12-22] MEDS: METOCLOPRAMIDE HCL 5MG/ml INJ 2ml VIAL IV SCH ×3 (06:32→22:27)
[2022-12-22] MEDS: BUMETANIDE 2.5mg/10ml (0.25 mg/ml) INJ IV SCH ×2 (06:32→18:14)
[2022-12-22] MEDS: ACCU-CHEK COMFORT CURVE STRIP VI SCH ×4 (06:33→22:56)
[2022-12-22] MEDS: InsuLIN REG 1unit/0.01ml Soln (100units/ml) SC SCH ×4 (06:34→23:01)
[2022-12-22 07:11] LABS: Albumin 2.2 g/dL (3.4-5.0); Calcium 7.6 mg/dL (8.5-10.1); Potassium 5.2 mmol/L (3.5-5.1)
[2022-12-22 07:12] LABS: Red Blood Cells 2.24 10^6/uL (4.5-5.90)
[2022-12-22 07:13] LABS: BUN/Creatinine Ratio 23.1 (10.0-20.0); Hematocrit 21.8 % (41.0-53.0); Hemoglobin 7.4 g/dL (13.5-17.5); Mean Corpuscular Hemoglobin 33.2 pg (28.0-32.0); Mean Corpuscular Volume 97.5 fL (80.0-100.0); Red Cell Distribution Width 16.2 % (11.8-14.3); White Blood Cell 14.4 10^3/uL (4.4-10.8)
[2022-12-22 07:15] LABS: Bilirubin, Total 0.8 mg/dL (0.2-1.0); Total Protein 5.9 g/dL (6.4-8.2)
[2022-12-22 07:34] LABS: Basophils % (manual) 0 (0.0-2.0); Blast Cells 0; Eosinophils % (manual) 0 (0-7); Metamyelocytes % 0; Myelocytes % 0; Promyelocytes % 0; Reactive Lymphocytes 0
[2022-12-22 08:47] LABS: Band Neutrophils % (manual) 4; Lymphocytes % (manual) 2 (10.0-50.0); Monocytes % (manual) 4 (0-12)
[2022-12-22] MEDS: QUEtiapine FUMARATE 25 MG TAB PO SCH (09:47)
[2022-12-22] MEDS: CALCITRIOL 0.25 MCG CAP PO SCH (09:47)
[2022-12-22] MEDS: AMIODARONE HCL 200 MG TAB PO SCH ×2 (09:47→22:27)
[2022-12-22] MEDS: ASPirin 81 mg TAB PO SCH (09:47)
[2022-12-22] MEDS: SPIRONOLACTONE 25 MG TAB PO SCH (09:47)
[2022-12-22] MEDS: LISINOPRIL 10 MG TAB PO SCH (09:48)
[2022-12-22] MEDS: METOPROLOL TARTRATE 25 MG TAB PO SCH ×3 (09:48→23:09)
[2022-12-22] MEDS: PANTOPRAZOLE 40 MG/10 ML VIAL INJ IV SCH (10:27)
[2022-12-22] MEDS: DexAMETHasone SOD PHOS 4 MG/1ML SDV INJ IV SCH (10:27)
[2022-12-22] MEDS: Pro-Stat SF 30ml Vanilla GT SCH ×2 (10:28→22:56)
[2022-12-22] MEDS: NOREPINEPHRINE 8 MG/250ML KIT 250 ML IV SCH (11:00)
[2022-12-22] MEDS: MIDAZOLAM DRIP 50 mg/50mL 50 ML IV SCH (17:30)
[2022-12-22] MEDS: TAMSULOSIN HYDROCHLORIDE 0.4 MG CAP PO SCH (17:58)
[2022-12-22] MEDS: fentaNYL Drip 2500mCg/250mlNS 250 ML IV SCH (21:29)
[2022-12-22] MEDS: INSULIN LANTUS (GLARGINE) 1 /0.01ml (100units/ml) SC SCH (23:01)
[2022-12-23] VITALS (71 sets, daily range): BP systolic 61–175; BP diastolic 15–51
[2022-12-23] MEDS: ALBUTEROL SULF 2.5 MG/0.5ML(0.5%) NEB SOLN NEB SCH ×4 (02:56→14:13)
[2022-12-23] MEDS: IPRATROPIUM BROM 0.5 MG/2.5ML INH SOL NEB SCH ×4 (02:56→14:13)
[2022-12-23] MEDS: BUMETANIDE 2.5mg/10ml (0.25 mg/ml) INJ IV SCH (06:12)
[2022-12-23] MEDS: METOCLOPRAMIDE HCL 5MG/ml INJ 2ml VIAL IV SCH (06:12)
[2022-12-23 06:19] LABS: Calcium 7.9 mg/dL (8.5-10.1); Potassium 5.1 mmol/L (3.5-5.1)
[2022-12-23 06:23] LABS: BUN/Creatinine Ratio 26.4 (10.0-20.0)
[2022-12-23 06:38] LABS: Basophils # (auto) 0 10 ^3/uL (0-0.2)
[2022-12-23 06:42] LABS: Basophils % (auto) 0.3 % (0.0-2.0); Eosinophils # (auto) 0 10 ^3/uL (0-0.8); Hematocrit 20.9 % (41.0-53.0); Lymphocytes # (auto) 0.2 10 ^3/uL (0.4-5.4); Lymphocytes % (auto) 1.3 % (10.0-50.0); Mean Corpuscular Hemoglobin 32.2 pg (28.0-32.0); Mean Corpuscular Hgb Conc. 32.7 g/dL (32.0-36.0); Mean Corpuscular Volume 98.6 fL (80.0-100.0); Monocytes # (auto) 0.5 10 ^3/uL (0-1.3); Monocytes % (auto) 3.5 % (0.0-12.0); Neutrophils # (auto) 13.9 10 ^3/uL (1.6-8.6); Neutrophils % (auto) 94.9 % (37.0-80.0); Red Blood Cells 2.12 10^6/uL (4.5-5.90); Red Cell Distribution Width 16.4 % (11.8-14.3); White Blood Cell 14.6 10^3/uL (4.4-10.8)
[2022-12-23 06:52] LABS: Hemoglobin 6.8 g/dL (13.5-17.5)
[2022-12-23] MEDS: SODIUM BICARBONATE 650 MG TAB PO SCH (06:52)
[2022-12-23] MEDS ORDERED: SODIUM CHL 0.9% 1000 ML BAG XX ONE (07:00)
[2022-12-23] MEDS: InsuLIN REG 1unit/0.01ml Soln (100units/ml) SC SCH ×2 (07:04→11:45)
[2022-12-23] MEDS: fentaNYL Drip 2500mCg/250mlNS 250 ML IV SCH (11:09)
[2022-12-23] MEDS: QUEtiapine FUMARATE 25 MG TAB PO SCH (11:45)
[2022-12-23] MEDS: LISINOPRIL 10 MG TAB PO SCH (11:45)
[2022-12-23] MEDS: PANTOPRAZOLE 40 MG/10 ML VIAL INJ IV SCH (11:46)
[2022-12-23] MEDS: DexAMETHasone SOD PHOS 4 MG/1ML SDV INJ IV SCH (11:46)
[2022-12-23] MEDS: SPIRONOLACTONE 25 MG TAB PO SCH (11:46)
[2022-12-23] MEDS: METOPROLOL TARTRATE 25 MG TAB PO SCH (11:46)
[2022-12-23] MEDS: Pro-Stat SF 30ml Vanilla GT SCH (11:46)
[2022-12-23] MEDS: AMIODARONE HCL 200 MG TAB PO SCH (11:46)
[2022-12-23] MEDS: ASPirin 81 mg TAB PO SCH (11:46)
[2022-12-23] MEDS: CALCITRIOL 0.25 MCG CAP PO SCH (11:48)
[2022-12-23] MEDS ORDERED: ACETAMINOPHEN 650 mg PER 20.3 mL UD GT PRN (12:30)
[2022-12-23] MEDS ORDERED: VANCOMYCIN 1GM/250ML 250 ML IV ONE (12:30)
[2022-12-23] MEDS ORDERED: VANCOMYCIN PER PHARMACY 0 MG IV SCH (12:30)
[2022-12-23] MEDS ORDERED: MEROPENEM 500MG IVPB 50 ML IV SCH (22:00)
[2022-12-24] MEDS ORDERED: DexAMETHasone SOD PHOS 4 MG/1ML SDV INJ IV SCH (10:00)
== END 2022-12-23 16:20 | DRG 870 ==
LOC: EDBD 08:11 → EDUNIT# 08:11 → ER 08:11 → TELE 12:48 → ICU CENTRL 12-04 09:45
PROVIDERS: ADMIT Registered Nurse; ATTEND Internal Medicine Geriatric Medicine
PROC: 5A1955Z Respiratory Ventilation, Greater than 96 Consecutive Hours (ICD-10-PCS; principal; 2022-12-03)
PROC: 0BH17EZ Insertion of Endotracheal Airway into Trachea, Via Natural or Artificial Opening (ICD-10-PCS; 2022-12-03)
PROC: 5A1D70Z Performance of Urinary Filtration, Intermittent, Less than 6 Hours Per Day (ICD-10-PCS; 2022-12-03)
PROC: 5A1D70Z Performance of Urinary Filtration, Intermittent, Less than 6 Hours Per Day (ICD-10-PCS; 2022-12-04)
PROC: 4A023N8 Measurement of Cardiac Sampling and Pressure, Bilateral, Percutaneous Approach (ICD-10-PCS; 2022-12-05)
PROC: B211YZZ Fluoroscopy of Multiple Coronary Arteries using Other Contrast (ICD-10-PCS; 2022-12-05)
PROC: 30233N1 Transfusion of Nonautologous Red Blood Cells into Peripheral Vein, Percutaneous Approach (ICD-10-PCS; 2022-12-05)
PROC: B215YZZ Fluoroscopy of Left Heart using Other Contrast (ICD-10-PCS; 2022-12-05)
PROC: B41GYZZ Fluoroscopy of Left Lower Extremity Arteries using Other Contrast (ICD-10-PCS; 2022-12-05)
PROC: 5A1D70Z Performance of Urinary Filtration, Intermittent, Less than 6 Hours Per Day (ICD-10-PCS; 2022-12-05)
PROC: 5A1D70Z Performance of Urinary Filtration, Intermittent, Less than 6 Hours Per Day (ICD-10-PCS; 2022-12-06)
PROC: 5A1D70Z Performance of Urinary Filtration, Intermittent, Less than 6 Hours Per Day (ICD-10-PCS; 2022-12-07)
PROC: 5A1D70Z Performance of Urinary Filtration, Intermittent, Less than 6 Hours Per Day (ICD-10-PCS; 2022-12-08)
PROC: 5A1D70Z Performance of Urinary Filtration, Intermittent, Less than 6 Hours Per Day (ICD-10-PCS; 2022-12-10)
PROC: 5A1D70Z Performance of Urinary Filtration, Intermittent, Less than 6 Hours Per Day (ICD-10-PCS; 2022-12-12)
PROC: 5A1D70Z Performance of Urinary Filtration, Intermittent, Less than 6 Hours Per Day (ICD-10-PCS; 2022-12-14)
PROC: 5A1D70Z Performance of Urinary Filtration, Intermittent, Less than 6 Hours Per Day (ICD-10-PCS; 2022-12-17)
PROC: 5A1D70Z Performance of Urinary Filtration, Intermittent, Less than 6 Hours Per Day (ICD-10-PCS; 2022-12-21)
PROC: 5A1D70Z Performance of Urinary Filtration, Intermittent, Less than 6 Hours Per Day (ICD-10-PCS; 2022-12-23)
DX: A41.9 Sepsis, unspecified organism (principal); I50.43 Acute on chronic combined systolic (congestive) and diastolic (congestive) heart failure; J96.01 Acute respiratory failure with hypoxia; U07.1 COVID-19; J12.82 Pneumonia due to coronavirus disease 2019; K72.00 Acute and subacute hepatic failure without coma; R65.21 Severe sepsis with septic shock; I21.4 Non-ST elevation (NSTEMI) myocardial infarction; N18.6 End stage renal disease; I13.2 Hypertensive heart and chronic kidney disease with heart failure and with stage 5 chronic kidney disease, or end stage renal disease; N17.9 Acute kidney failure, unspecified; R57.0 Cardiogenic shock; E87.5 Hyperkalemia; E78.5 Hyperlipidemia, unspecified; E11.22 Type 2 diabetes mellitus with diabetic chronic kidney disease; E87.70 Fluid overload, unspecified; F03.90 Unspecified dementia, unspecified severity, without behavioral disturbance, psychotic disturbance, mood disturbance, and anxiety; I48.91 Unspecified atrial fibrillation; E88.09 Other disorders of plasma-protein metabolism, not elsewhere classified; D63.1 Anemia in chronic kidney disease; I25.10 Atherosclerotic heart disease of native coronary artery without angina pectoris; Z79.899 Other long term (current) drug therapy; Z87.891 Personal history of nicotine dependence; Z91.119 Patient's noncompliance with dietary regimen due to unspecified reason; Z91.199 Patient's noncompliance with other medical treatment and regimen due to unspecified reason; Z99.2 Dependence on renal dialysis
CPT/HCPCS: 36415; 36600; 70450; 71045; 75710; 76705; 80048; 80053; 80061; 80074; 80307; 81001; 82728; 82805; 82962; 83036; 83540; 83550; 83605; 83880; 84100; 84443; 84484; 85007; 85025; 85027; 85379; 85610; 85730; 86141; 86706; 86850; 86900; 86901; 86920; 87040; 87070; 87081; 87086; 87205; 87340; 87426; 90935; 93005; 93306; 93458; 93970; 93971; 94002; 94003; 94640; 94660; 96374; 99152; 99153; 99291; C9113; G0378; J0461; J0690; J0696; J1100; J1642; J1815; J2185; J2250; J2704; J7060; P9047; Q9967